=== PATIENT | male | born 1950 | race Caucasian/White ===

== ENCOUNTER 2020-01-30 00:11 | Day surgery (SDC) | payer MEDICARE, OTHER, SELFPAY ==
[2020-01-27 12:10] VITALS: BMI 27.6
[2020-01-30 09:45] VITALS: BP 151/99; PULSE 75; RESP 18; TEMP 36.2; O2SAT 98
--- NOTE | 2020-01-30 10:14 | WPDANESEPPF ---
Anes - Initial Pre Proc Eval Procedure: Operation Date: 01/30/20 11:00 Proposed Procedures p Screening Colonoscopy - Nicholas Benitez MD Date/Time: 01/30/20 10:14 Surgeon: Nicholas Benitez MD Pre Op Diagnosis: pers hx colon polyps Patient Data Age: 69 Gender: M Height: 5 ft 11 in Weight: 92.2 kg Last Vital Signs Temp 36.2 C L 01/30/20 09:45 Pulse 75 01/30/20 09:45 Resp 18 01/30/20 09:45 BP 151/99 H 01/30/20 09:45 Pulse Ox 98 01/30/20 09:45 Allergies Allergy/AdvReac Type Severity Reaction Status Date / Time No Known Allergies Allergy Verified 01/27/20 12:17 Home Medications Medication Instructions Recorded Confirmed Type No Home Medications 01/27/20 01/27/20 History Patient hx anesthesia problems: none Family hx anesthesia problems: none PMFSH Past Medical History Medical History (Updated 01/30/20 @ 10:15 by Lex Chavira MD) Overweight Surgical History Surgical History (Updated 01/30/20 @ 10:15 by Lex Chavira MD) History of partial knee replacement S/P hernia repair Family History Family History Sibling Hypertension Mother Family history of osteoarthritis Father Patient's father is Social History Social History Smoking end date: 09/25/87 Alcohol intake: current Anes - Eval Final PreProcedure Day of Procedure 01/30/20 10:14 Patient weight: overweight Heart: regular rate and rhythm Lungs: clear to auscultation Airway: Mallampati scale class 1 Neurological: alert and oriented Last oral intake: >/= 8 hours ASA classification: II Emergent: no Anesthetic plan: proceed Anesthesia type and monitoring: general GIVS and standard monitoring Informed Consent: The patient's anesthetic plan and its attendant risks and benefits were discussed with the patient/family/POA. Questions were solicited and answers provided to the satisfaction of the patient/family/POA.
[2020-01-30] MEDS: LACTATED RINGERS 1,000 ML 150 ML IV CONT (10:15)
--- NOTE | 2020-01-30 10:54 | P.HP_ITS ---
History of Present Illness History of Present Illness Consent: Risks, benefits, and alternatives have been discussed and questions answered. Patient agrees to proceed with procedure. Chief complaint: pers hx colon polyps Narrative: Topher Robbins is a 69 year old W male Referred for colonoscopy secondary to removal of a sessile ascending colon polyp 6 months ago at [facility] Past Medical History Medical History Overweight Surgical History Surgical History History of partial knee replacement S/P hernia repair Family History Family History Sibling Hypertension Mother Family history of osteoarthritis Father Patient's father is Social History Social History Smoking end date: 09/25/87 Alcohol intake: current Meds Home Medications and Allergies Home Medications Medication Instructions Recorded Confirmed Type No Home Medications 01/27/20 01/27/20 History Allergies Allergy/AdvReac Type Severity Reaction Status Date / Time No Known Allergies Allergy Verified 01/27/20 12:17 Vital Signs Vital Signs - 24 hr 01/30/20 09:45 Temperature 36.2 C L Pulse Rate 75 Respiratory Rate 18 Blood Pressure 151/99 H Pulse Oximetry 98 Exam Const: Orientation/consciousness: patient oriented x3 Resp: Auscultation: clear to auscultation bilaterally Cardio: Rate: regular rate Rhythm: regular rhythm Heart sounds: no mu rmurs GI: GI Palp: Yes Soft to palpation, No Tenderness to palpation present (GI), Yes No hepatosplenomegaly present and No Palpable mass present Auscultation: normal bowel sounds Neuro: General: patient oriented x3 and no focal motor deficits Extrem: General: no pedal edema Assessment and Plan Additional Plan Colonoscopy for follow-up of a sessile polyp removed piecemeal fashion 6 months ago at [facility]
[2020-01-30 12:15] VITALS: BP 100/55; PULSE 47; RESP 18; O2SAT 97
[2020-01-30 12:16] VITALS: BP 93/53; PULSE 54; RESP 18; O2SAT 97
[2020-01-30 12:30] VITALS: BP 109/59; PULSE 47; RESP 18; O2SAT 99
== END 2020-01-30 13:00 | disposition home or self-care (01) ==
PROVIDERS: PCP Internal Medicine; Visit Provider Internal Medicine Gastroenterology
PROC: 0DJD8ZZ Inspection of Lower Intestinal Tract, Via Natural or Artificial Opening Endoscopic (ICD-10-PCS; CPT 45378; principal; 2020-01-30 11:00)
DX: Z09 Encounter for follow-up examination after completed treatment for conditions other than malignant neoplasm (principal); K64.1 Second degree hemorrhoids; K64.4 Residual hemorrhoidal skin tags; Z86.010 Personal history of colon polyps
CPT/HCPCS: 45378; J2704; J7120

== ENCOUNTER → 2020-07-23 09:38 | Outpatient (CLI) | payer MEDICARE, OTHER, SELFPAY ==
--- NOTE | ~2020-07-23 | XR_ITS ---
EXAMINATION: XR wrist LT min 3V DATE: 07/23/2020 10:04 INDICATION: Left wrist pain. TECHNIQUE: 4 views of left wrist were obtained. COMPARISON: None. FINDINGS: Bone alignment is normal. No fracture. There is moderate osteoarthritis of distal radioulna r joint, mild osteoarthritis of scapholunate joint, moderate osteoarthritis of triscaphe joint, and m ild osteoarthritis of first carpometacarpal joint. IMPRESSION: 1. Polyarticular osteoarthritis. Reviewed, dictated and finalized at location A.
--- NOTE | ~2020-07-23 | XR_ITS ---
EXAMINATION: XR wrist RT min 3V DATE: 07/23/2020 10:04 INDICATION: Right wrist pain. TECHNIQUE: 4 views of right wrist were obtained. COMPARISON: None. FINDINGS: Bone alignment is normal. No fracture. There is moderate osteoarthritis of distal radioulna r joint, mild osteoarthritis of the capitate-lunate and scapholunate joints, severe osteoarthritis of triscaphe joint, and mild osteoarthritis of first carpometacarpal joint. IMPRESSION: 1. Polyarticular osteoarthritis. Reviewed, dictated and finalized at location A.
== END ==
PROVIDERS: PCP Internal Medicine; Visit Provider Clinical Nurse Specialist
DX: M19.032 Primary osteoarthritis, left wrist (principal); M19.031 Primary osteoarthritis, right wrist; M18.0 Bilateral primary osteoarthritis of first carpometacarpal joints
CPT/HCPCS: 73110

== ENCOUNTER 2021-06-11 18:42 | Emergency (ER) | payer MEDICARE, OTHER, SELFPAY ==
[2021-06-11 18:43] VITALS: BP 132/94; PULSE 85; RESP 20; TEMP 36.6; O2SAT 99
[2021-06-11] MEDS: TETANUS,DIPHTHERIA,AC PERTUSSIS ADULT (0.5 ML) BOOSTRIX IM (20:14)
[2021-06-11] MEDS: FLUORESCEIN SOD 1 MG/STRIP EACH EYE (20:15)
[2021-06-11] MEDS: TETRACAINE HCL 0.5% OPHTH SOLN 4 ML BTL 1 DROP EACH EYE (20:15)
--- NOTE | 2021-06-11 20:41 | ED.GENADULT ---
HPI - General Adult General Chief complaint: Eye Problems Stated complaint: metal in l eye Time Seen by Provider: 06/11/21 19:54 History of Present Illness HPI narrative: Patient 71-year-old gentleman who presents the emergency department with chief complaint of foreign body. Patient works he was doing some grinding just wearing his regular eyeglasses and was not wearing extended eye protection. The patient states he is reports that he feels as though there is something there and is not having any improvement. Patient states he is not sure what his last tetanus shot was. Between 5 and 10 years ago Related Data Allergies Allergy/AdvReac Type Severity Reaction Status Date / Time No Known Allergies Allergy Verified 07/09/20 14:06 Review of Systems Review of Systems: A 10 system review of systems was completed on the patient and is negative except for what is stated in the HPI. Nursing and ancillary documentation was reviewed. [facility] Past Medical History Medical History (Updated 06/11/21 @ 20:47 by Juve Peterson MD) Overweight Surgical History Surgical History History of partial knee replacement S/P hernia repair Family History Family History Sibling Hypertension Mother Family history of osteoarthritis Father Patient's father is Social History Social History Smoking end date: 09/25/87 Alcohol intake: current Alcohol use details: weekends Exam Narrative: GENERAL: Well-appearing, well-nourished, and in no acute distress. HEAD: Normocephalic, atraumatic. EYES: PERRLA and EOMI. there is a small foreign body in the cornea at approximately 5 o'clock position ENT: Nares clear, no rhinorrhea or epistaxis. Mucous membranes moist. NECK: Supple. CHEST: Clear to auscultation. No respiratory distress. HEART: Regular rate and rhythm. No murmur heard. Normal peripheral pulses. ABDOMEN: Soft, nontender, nondistended, normal active bowel sounds. EXTREMITIES: Normal range of motion. No edema. SKIN: Warm, dry, no rash. NEURO: No focal deficits. Alert and oriented x3. PSYCH: Normal mood and affect. Course Vital Signs Vital signs: Vital Signs Temperature 36.6 C 06/11/21 18:43 Pulse Rate 85 06/11/21 18:43 Respiratory Rate 06/11/21 18:43 Blood Pressure 132/94 H 06/11/21 18:43 Pulse Oximetry 99 06/11/21 18:43 Temperature 36.6 C 06/11/21 18:43 Pulse Rate 85 06/11/21 18:43 Respiratory Rate 06/11/21 18:43 Blood Pressure 132/94 H 06/11/21 18:43 Pulse Oximetry 99 06/11/21 18:43 Procedures FB Removal Eye Foreign Body #1: Foreign Body Removal Date: 06/11/21 Foreign Body Removal Time: 20:44 Time Out performed: Yes Location: eye (L) Topical anesthetic used: tetracaine Foreign body: metal Evidence of corneal penetration: No Technique: needle Procedure performed under: direct visualization with magnification Post-procedure medication: ophthalmic antibiotic Patient tolerated procedure: well Complications: residual rust ring Medical Decision Making Vital Signs Vital Signs: Vital Signs Temperature 36.6 C 06/11/21 18:43 Pulse Rate 85 06/11/21 18:43 Respiratory Rate 06/11/21 18:43 Blood Pressure 132/94 H 06/11/21 18:43 Pulse Oximetry 99 06/11/21 18:43 Temperature 36.6 C 06/11/21 18:43 Pulse Rate 85 06/11/21 18:43 Respiratory Rate 06/11/21 18:43 Blood Pressure 132/94 H 06/11/21 18:43 Pulse Oximetry 99 06/11/21 18:43 Discharge Plan Discharge Clinical Impression: Acute foreign body of cornea Qualifiers: Encounter type: initial encounter Laterality: left Qualified Code(s): T15.02XA - Foreign body in cornea, left eye, initial encounter
[2021-06-11] MEDS: GENTAMICIN SULFATE 0.3% OP SOL 5 ML BTL 1 DROP LEFT EYE (21:11)
[2021-06-11 21:14] VITALS: BP 140/77; PULSE 55; RESP 18; O2SAT 96
== END 2021-06-11 21:15 | disposition home or self-care (01) ==
PROVIDERS: Emergency Provider Emergency Medicine; PCP Internal Medicine
DX: T15.02XA Foreign body in cornea, left eye, initial encounter (principal); Z23 Encounter for immunization; X58.XXXA Exposure to other specified factors, initial encounter
CPT/HCPCS: 65220; 90471; 90715; 99283; A9270

== ENCOUNTER → 2022-01-27 12:26 | Outpatient (CLI) | payer MEDICARE, OTHER, SELFPAY ==
--- NOTE | ~2022-01-27 | XR_ITS ---
EXAMINATION: XR chest 2V DATE: 01/27/2022 13:37 INDICATION: Cough and congestion. Intermittent shortness of breath. TECHNIQUE: PA and lateral views of the chest were obtained. COMPARISON: Chest radiograph dated 04/29/[address] abdomen dated 07/17/2014 FINDINGS: Minimal streaky lingular atelectasis along side a small left pericardial fat pad. No new airspace opa cities, pulmonary edema, pleural effusion or pneumothorax. Arch size is normal. Moderate midthoracic spondylosis. IMPRESSION: 1. Minimal chronic lingular atelectasis/scarring. No acute cardiopulmonary disease. Reviewed, dictated and finalized at location A. IMPRESSION: 1. Minimal chronic lingular atelectasis/scarring. No acute cardiopulmonary dise ase.
== END ==
PROVIDERS: PCP Internal Medicine; Visit Provider Nurse Practitioner
DX: R05.9 Cough, unspecified (principal); R91.8 Other nonspecific abnormal finding of lung field
CPT/HCPCS: 71046

== ENCOUNTER 2022-02-25 14:03 | Outpatient (CLI) | payer MEDICARE, OTHER, SELFPAY ==
--- NOTE | 2022-02-28 13:16 | WPDPFTINT ---
PFT Procedure Performed PFT Procedure Performed Plethysmography (Lung Vol) Diffusing Cap (DLCO) Flow Vol Loop Spirometry w/o Bronchodil PFT Interpretation Lung volumes were measured with the body plethysmography method. Lung volumes are unremarkable. Spirometry showed diminished expiratory flow rates and a diminished FEV1 to FVC ratio of 54%, indicative of obstructive airway disease. No post bronchodilator study carried out. Lung diffusion capacity is within normal range at 97% predicted. The flow volume loop is consistent with obstructive airway disease. Impression: Mild obstructive airway disease. Lung diffusion capacity within normal range.
== END 2022-02-25 14:04 | disposition home or self-care (01) ==
LOC: ANHPFT 14:05
PROVIDERS: PCP Internal Medicine; Visit Provider Nurse Practitioner
DX: R05.9 Cough, unspecified (principal); J44.9 Chronic obstructive pulmonary disease, unspecified
CPT/HCPCS: 94375; 94726; 94729

== ENCOUNTER 2022-03-24 01:28 | Day surgery (SDC) | payer MEDICARE, OTHER, SELFPAY ==
[2022-03-10 08:23] VITALS: BMI 26.9
--- NOTE | 2022-03-22 12:44 | PM.HPGS ---
History of Present Illness History of Present Illness Consent: Risks, benefits, and alternatives have been discussed and questions answered. Patient agrees to proceed with procedure. Chief complaint: hx of colon polyps Narrative: Topher Robbins is a 72 year old male Who was referred for colon cancer screening. Three years ago he had piecemeal resection of a flat an advanced adenoma in the proximal ascending colon Review of Systems Review of Systems: All systems reviewed & are unremarkable except as noted in HPI and below PMFSH Past Medical History Medical History Emphysema of lung Obstructive airway disease Overweight Surgical History Surgical History History of partial knee replacement S/P hernia repair Family History Family History Sibling Hypertension Mother Family history of osteoarthritis Father Patient's father is Social History Social History Smoking end date: 09/25/87 Alcohol intake: current Drinks per week: 10 Alcohol use details: weekends Substance use: current Substance use type: marijuana Living arrangements: alone Meds Home Medications and Allergies Home Medications Medication Instructions Recorded Confirmed Type ipratropium 0.5 mg-albuterol 3 mg 3 ml inhalation Q6H PRN shortness 02/17/21 03/10/22 Rx (2.5 mg base)/3 mL nebulization of breath #90 mL soln albuterol sulfate 90 mcg/actuation 2 puff inhalation Q4-6H PRN 03/18/21 03/24/22 Rx aerosol inhaler (Ventolin HFA) shortness of breath or wheezing #18 grams sodium sul 1.479 gram-potas ch See Rx Instructions PO PER PKG DIR 02/24/22 03/10/22 Rx 0.188 gram-magnes sul 0.225 gram #24 tabs tablet (Sutab) Allergies Allergy/AdvReac Type Severity Reaction Status Date / Time No Known Allergies Allergy Verified 03/24/22 08:39 Exam Const: General: alert Orientation/consciousness: patient oriented x3 Resp: Auscultation: clear to auscultation bilaterally Cardio: Rhythm: regular rhythm GI: GI Palp: Yes Soft to palpation and No Tenderness to palpation present (GI) Neuro: General: patient oriented x3 Assessment and Plan Assessment and plan (1) Colon cancer screening: Code(s): Z12.11 - Encounter for screening for malignant neoplasm of colon Status: Acute Assessment and Plan: Colonoscopy with possible biopsy or polypectomy or cautery or injection of substances.
--- NOTE | 2022-03-23 19:13 | WPDANESEPPF ---
Anes - Initial Pre Proc Eval Procedure: Operation Date: 03/24/22 09:30 Proposed Procedures p Screening Colonoscopy - Scotty rGaf MD Date/Time: 03/23/22 19:13 Surgeon: Scotty Graf MD Pre Op Diagnosis: hx of colon polyps Patient Data Age: 72 Gender: M Height: 1.83 m Weight: 90 kg Allergies Allergy/AdvReac Type Severity Reaction Status Date / Time No Known Allergies Allergy Verified 03/24/22 08:39 Home Medications Medication Instructions Recorded Confirmed Type ipratropium 0.5 mg-albuterol 3 mg 3 ml inhalation Q6H PRN shortness 02/17/21 03/10/22 Rx (2.5 mg base)/3 mL nebulization of breath #90 mL soln albuterol sulfate 90 mcg/actuation 2 puff inhalation Q4-6H PRN 03/18/21 03/24/22 Rx aerosol inhaler (Ventolin HFA) shortness of breath or wheezing #18 grams sodium sul 1.479 gram-potas ch See Rx Instructions PO PER PKG DIR 02/24/22 03/10/22 Rx 0.188 gram-magnes sul 0.225 gram #24 tabs tablet (Sutab) Patient hx anesthesia problems: none Family hx anesthesia problems: none Results Review: All pre-operative results and documents have been reviewed as part of the pre-operative evaluation. [facility], [facility] Past Medical History Medical History Emphysema of lung Obstructive airway disease Overweight Surgical History Surgical History History of partial knee replacement S/P hernia repair Family History Family History Sibling Hypertension Mother Family history of osteoarthritis Father Patient's father is Social History Social History Smoking end date: 09/25/87 Alcohol intake: current Drinks per week: 10 Alcohol use details: weekends Substance use: current Substance use type: marijuana Living arrangements: alone Anes - Eval Final PreProcedure Day of Procedure 03/23/22 19:13 Patient weight: overweight Heart: regular rate and rhythm Lungs: clear to auscultation Airway: Mallampati scale class II Neurological: alert and oriented Last oral intake: >/= 8 hours ASA classification: III Emergent: no Anesthetic plan: proceed Anesthesia type and monitoring: general GIVS and standard monitoring Results Review: All pre-operative results and documents have been reviewed as part of the pre-operative evaluation. Informed Consent: The patient's anesthetic plan and its attendant risks and benefits were discussed with the patient/family/POA. Questions were solicited and answers provided to the satisfaction of the patient/family/POA.
[2022-03-24 08:41] VITALS: BP 144/51; PULSE 95; RESP 20; TEMP 36.5; O2SAT 94; BMI 27.4
[2022-03-24] MEDS: LACTATED RINGERS 1,000 ML 150 ML IV CONT (08:44)
[2022-03-24 09:34] VITALS: BP 106/66; PULSE 60; RESP 23; O2SAT 97
[2022-03-24 09:44] VITALS: BP 114/71; PULSE 66; RESP 24; O2SAT 97
[2022-03-24 09:54] VITALS: BP 113/78; PULSE 54; RESP 19; O2SAT 98
== END 2022-03-24 10:04 | disposition home or self-care (01) ==
PROVIDERS: PCP Internal Medicine; Visit Provider Internal Medicine Gastroenterology
PROC: 0DJD8ZZ Inspection of Lower Intestinal Tract, Via Natural or Artificial Opening Endoscopic (ICD-10-PCS; CPT 45378; principal; 2022-03-24 09:30)
DX: Z12.11 Encounter for screening for malignant neoplasm of colon (principal); K63.5 Polyp of colon; K64.8 Other hemorrhoids; Z79.51 Long term (current) use of inhaled steroids; J43.9 Emphysema, unspecified; F12.90 Cannabis use, unspecified, uncomplicated
CPT/HCPCS: 45380; 88305; J2704; J7120

== ENCOUNTER 2024-08-01 09:06 | Outpatient (CLI) | payer MEDICARE, OTHER, SELFPAY ==
[2024-08-01 09:25] LABS: Basophils Absolute Auto 0.1 K/mm3 (0.0-0.1); Basophils Percent Auto 0.6 % (0.2-1.2); Eosinophils Absolute Auto 0.3 K/mm3 (0-0.3); Eosinophils Percent Auto 2.8 % (0-4.4); Hematocrit 44.6 % (42.0-52.0); Hemoglobin 15.3 g/dL (14.0-18.0); Immature Granulocyte Absolute 0.04 K/mm3 (0.00-0.031); Immature Granulocyte Percent A 0.4 % (0-0.5); Lymphocytes Absolute Auto 3.05 K/mm3 (0.9-3.2); Lymphocytes Percent Auto 32.4 % (18.3-44.2); Mean Corpuscular HGB Conc 34.3 g/dl (32-36); Mean Corpuscular Hemoglobin 29.4 pg (26-34); Mean Corpuscular Volume 85.8 fl (80-100); Mean Platelet Volume 10.1 fl (7.4-10.4); Monocytes Absolute Auto 0.8 K/mm3 (0.1-0.6); Monocytes Percent Auto 8.3 % (2.6-8.5); Neutrophils Absolute Auto 5.2 K/mm3 (1.3-6.7); Neutrophils Percent Auto 55.5 % (45.5-73.1); Platelet Count Result 237 k/mm3 (150-375); White Blood Count 9.4 K/mm3 (4.5-10.0)
[2024-08-01 09:46] LABS: Alanine Aminotransferase 16 U/L (6-50); Albumin Level 4.3 g/dL (3.5-5.1); Alkaline Phosphatase 77 U/L (38-126); Anion Gap 10 mmol/L (4-12); Aspartate Amino Transferase 21 U/L (17-59); Bilirubin,Total 0.8 mg/dL (0.2-1.3); Blood Urea Nitrogen 14 mg/dL (9-20); Calcium 9.3 mg/dL (8.4-10.2); Carbon Dioxide 28 mmol/L (22-30); Chloride 103 mmol/L (98-107); Cholesterol 199 mg/dL (0-200); Estimated Glomerular Filt Rate > 60; Glucose 106 mg/dL (65-110); HDL Direct 45 mg/dL; Potassium 4.3 mmol/L (3.4-5.0); Sodium 141 mmol/L (137-145); Triglycerides 154 mg/dL (<150)
[2024-08-01 09:57] LABS: LDL Cholesterol Direct 113 mg/dL
[2024-08-01 10:14] LABS: Prostate Specific Antigen 2.5 ng/mL (< OR = 4.0)
== END 2024-08-01 09:07 | disposition home or self-care (01) ==
PROVIDERS: PCP Internal Medicine; Visit Provider Nurse Practitioner
DX: E78.5 Hyperlipidemia, unspecified (principal); Z12.5 Encounter for screening for malignant neoplasm of prostate; Z13.29 Encounter for screening for other suspected endocrine disorder
CPT/HCPCS: 36415; 80053; 80061; 84153; 85025; G0103

== ENCOUNTER 2025-06-06 12:58 | Outpatient (CLI) | payer MEDICARE, OTHER, SELFPAY ==
--- NOTE | ~2025-06-06 | XR_ITS ---
XR scoliosis survey 06/06/2025 13:37 Indication: Spinal stenosis Procedure: 10 views of the spine including the cervical, thoracic and lumbar spine Comparison: 06/06/2025 Findings: There is severe cervical, thoracic and lumbar spondylosis. There is mild dextrocurvature of the cervical spine with levocurvature of the thoracic and lumbar spine. There is mild dextrocurvature of the spine at the thoracolumbar junction. No acute fracture, subluxation or cyst dislocation. Impression: 1: Severe multilevel spondylosis of the cervical, thoracic and lumbar spine with mild scoliosis. Reviewed, dictated and finalized at location O. Impression: 1: Severe multilevel spondylosis of the cervical, thoracic and lumbar spine wit h mild scoliosis.
--- NOTE | ~2025-06-06 | CT_ITS ---
CHEST ABDOMEN PELVIS WITH CONTRAST CLINICAL HISTORY: ABN FINDINGS;SACROCOCCYDEAL DISORDERS . COMPARISON: None TECHNIQUE: Helical CT performed from thoracic inlet to symphysis pubis 100 mL Omnipaque 350 Coronal, sagittal reformats. Multi planar MIPS CT images acquired with automatic exposure control for dose reduction DLP: 726 mGy-cm FINDINGS: CHEST- Lungs/Pleura: Clear. Mild hyperinflation. Thoracic Aorta: No dissection. No aneurysm. Mild atherosclerotic disease. Pulmonary arteries: Normal caliber. No PE identified but suboptimal contrast opacification. Heart: Coronary artery calcifications. Tracheobronchial tree: Patent. Nodes: No enlarged nodes. Small left hilar calcification. Bones: No acute bony abnormality. Soft tissues: Small left thyroid nodule. ABDOMEN/PELVIS- Liver: Steatosis. Gallbladder: Unremarkable. Spleen: Unremarkable. Pancreas: Unremarkable. Adrenal glands: Unremarkable. Kidneys: Right kidney- No hydronephrosis. No renal stones. Left kidney- No hydronephrosis. No renal stones. Distal esophagus/stomach: Unremarkable. Small bowel loops: Normal caliber and wall thickness. Colon: Apparent wall thickening distal descending colon likely merely underdistention. Normal RLQ appendix. Nodes: No enlarged nodes. Peritoneum: No ascites. No free air. Urinary bladder: Mild wall thickening. Prostate: Unremarkable. Bones: No acute bony abnormality. Soft tissues: Unremarkable. Aorta: Atherosclerotic disease. No aneurysm or dissection. Median arcuate ligament attenuation on celiac with inferior angulation and narrowing. IVC: Unremarkable. Main portal vein/SMV/splenic vein: Patent. IMPRESSION: CHEST- 1. No acute findings. ABDOMEN/PELVIS- 1. No acute findings. Nonurgent findings as above. Reviewed, dictated and finalized at location R.
--- NOTE | ~2025-06-06 | XR_ITS ---
XR lumbar spine min 4V Indication: M48.00 - Spinal stenosis, site unspecified Comparison: None Findings: No fracture identified, no subluxation flexion-extension Moderate loss of disc height at L2-3. Soft tissues unremarkable Impression: No acute abnormality. Reviewed, dictated and finalized at location A. Impression: No acute abnormality.
[2025-06-09 09:37] LABS: Estimated Glomerular Filt Rate > 60
== END 2025-06-06 12:59 | disposition home or self-care (01) ==
PROVIDERS: PCP Internal Medicine; Referring Provider Neurological Surgery; Visit Provider Nurse Practitioner
DX: M48.00 Spinal stenosis, site unspecified (principal); R93.7 Abnormal findings on diagnostic imaging of other parts of musculoskeletal system; M53.3 Sacrococcygeal disorders, not elsewhere classified
CPT/HCPCS: 71260; 72082; 72110; 74177; Q9967

== ENCOUNTER 2025-08-18 07:02 | Day surgery (SDC) | payer MEDICARE, OTHER, SELFPAY ==
[2025-06-17 09:33] VITALS: BMI 26.3
[2025-08-13 12:31] VITALS: BMI 26.4
--- NOTE | ~2025-08-18 | XR_ITS ---
Intraoperative images, fluoroscopy time 34 seconds Reviewed, dictated and finalized at location P. OR FRONT END DEVELOPER
--- NOTE | 2025-08-18 05:41 | WPDHPUPDATE1 ---
History and Physical Update Update Date/Time: 08/18/25 05:41 History and Physical has been reviewed, including an updated exam of the patient. There are NO changes in the patient's condition. Risks, benefits, and alternatives have been discussed and questions answered. Patient agrees to proceed with procedure.
--- NOTE | 2025-08-18 05:42 | P.OP_ITS ---
Procedure Note - Detailed Date of Procedure 08/18/25 Pre-op Diagnosis Lumbar Radioculopathy, Lumbar Spinal Stenosis w/Neurogenic Claudication Post-op Diagnosis Same Procedure Performed Right Lumbar Transforaminal Epidural Steroid Injection under Fluoroscopic Guidance and with Contrast Control at L3-4, L4-5. Surgeon Garret Kuhn MD Anesthesia Local Description of Procedure INFORMED CONSENT: Risks, benefits and alternatives to the procedure were discussed in detail with the patient who expressed explicit understanding and consent to proceed. Patient was informed verbally and in written form regarding the risks associated with the procedure including the low risk of serious infection, bleeding/bruising, allergic reaction, nerve or organ injury, paralysis, procedural site pain or discomfort, worsening pain and/or mobility, failure to treat and/or disfigurement. The patient expressed explicit understanding and consent to proceed. All materials required for the procedure were available prior to procedure start. Site and side was marked prior to procedure and confirmed in the presence of the patient. PROCEDURE IN DETAIL: The patient was brought to the procedural suite and placed in the prone position. Patient was made comfortable with use of pillows under t he head/chest, hips and ankles. Skin overlying the injection site was prepared broadly with ChloraPrep applicator and draped in a sterile manner. Aseptic technique was employed throughout. The endplates of the vertebral body at the site of interest were aligned in the AP view. Ipsilateral oblique angulation was utilized to better visualize the neuroforamen of interest. Local anesthesia was established by infiltration with approximately 5 mL of 0.5% PF lidocaine via a 1-1/2 inch 27-gauge needle. A 22-gauge 5.0 inch Kavya (pencil point) spinal needle was advanced until the needle approached the 6 o'clock position on the pedicle just superior to the exiting nerve root. on the right at L4-5. Lateral view was utilized to confirm appropriate position of the needle tip within the superior and posterior portion of the respective foramen. In an AP view, 1 mL of Omnipaque 300 contrast medium was injected after negative aspiration for CSF, blood or other bodily fluid, showing appropriate neurogram without evidence of intravascular or intrathecal spread of contrast. Digital subtraction imaging was used with an additional 1ml of the same contrast medium to confirm absence of intravascular contrast spread. A 1mL solution containing 5 mg of dexamethasone was injected after negative repeat aspiration. Appropriate spread of the injectate was confirmed with washout of previously injected contrast. No parasthesias were elicited. Needle was removed completely intact without difficulty. The same exact procedure was repeated for all remaining levels on the ipsilateral side, right L3-4 neuroforamen, modified as necessary to accommodate for the new target location with identical findings and results and no evidence of complication. Images were saved and documented in the patient chart. Patient's skin was cleaned and sterile bandage applied. The patient tolerated the procedure well. The patient was transported to the recovery area in stable condition where they were observed for an appropriate amount of time prior to discharge, without evidence of complication. The patient was instructed to avoid excessive activity for the next 48 hours, including climbing and frequent use of stairs. Showers only for 48 hours. They were instructed not to drive or operate heavy machinery for 24 hours. They are to monitor for severe headaches, fevers, chills, night sweats, erythema/swelling at the site or any other signs of infection, bleeding/bruising, bowel or bladder changes as well as new pain, weakness or numbness in the upper or lower extremity. Should they notice these changes, they are instructed to call our office immediately or report directly to the nearest Emergency Department if no answer or if after posted office hours. COMPLICATIONS: None COMMENTS: None CONTRAST WASTED: 26 mL Omnipaque 300. STEROID WASTED: 0 mg of dexamethasone. Complications No immediate complications Condition Stable Disposition Same day [facility] Billing Surgery - Charge Forward: Surgery Billing
--- OUTSIDE RECORDS SUMMARY | 2025-08-18 07:05 | XMS_ITS | Encounter Summary ---
Author Organization [facility] Address [address] [place] [address] Phone Care Team Providers Care Primary Class Teacher Name Role Phone Desi Valle NP Primary Care Provider [phone] Morgan Song MD Unavailable [phone] Encounter Details Date Type Department Care Team (Late st Contact Info) Description 08/14/2025 Orders Only [facility] [address] [place] [address] Breana Townsned Social History Tobacco Use Types Packs/Day Years Used Date Smoking Tobacco: Former Smokeless Tobacco: Former Chew Alcohol Use Standard Drinks/Week Comments Yes 2 (1 standard drink = 0.6 oz pur e alcohol) AUDIT-C Answer Date Recorded Q1: How often do you have a drink containing alc ohol? Monthly or less 07/31/2025 Average Number of Drinks Not on file 025 Frequency of Binge Drinking Not on file 02/2025 Personal Safety Answer Date Recorded Have you ever been in or are you currently in a harmful physical or emotional relationship or is someone making you feel afraid or unsafe? 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[employer] Gender Identity Not on file Sexual Orientation Not on file Occupation Industry Job Start Date Job End Date retired Not on file Not on file Not on file documented as of this encounter Functional Status documented as of this encounter Plan of Treatment Not on file documented as of this encounter Visit Diagnoses Not on filedocumented in this encounter Care Teams Primary Class Teacher Relationship Specialty Start Date End Date Desi Valle, QI SPECIALIST [facility] [place] [place] [address] PCP - General Nurse Practitioner 06/30/25 Morgan Song MD [address] [place] [address] Consulting Physician Internal Medicine 07/01/25 documented as of this encounter
--- OUTSIDE RECORDS SUMMARY | 2025-08-18 07:06 | XMS_ITS ---
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 Past Treatment and Therapy Plans No past plan information found. Current Radiation Episodes * Radiation TherapyOverview* First Treatment Date Latest Treatment Date Treatment Site Technique Goal Episode Provider 08/06/2025 08/08/2025 Treatment Courses* Course [id number]/06/2025 - 08/08/2025 Treatment Period Fraction Dose Fractions Total Dose Plans Planned PELVIS 08/06/2025 - 08/08/2025 200 2 / 4 00 Reference Points Delivered PELVIS_400 08/06/2025 - 08/08/2025 400
--- OUTSIDE RECORDS SUMMARY | 2025-08-18 07:06 | XMS_ITS | Clinical Summary ---
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 Leukocytosis 02/19/2020 Adenomatous polyp of ascending colon 03/20/2019 Overview (03/20/2019): Added automatically from request for surgery [id number] Knee pain 12/12/2013 Encounters Date Type Department Care Team Description 08/14/2025 11:15 AM TANK TRUCK MECHANIC Office Visit [facility] [address] [place] [address] [address] [place] [address] Angela Hall NP Follicular lymphoma grade I, unspecified body region (HCC) (Primary Dx); 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); Non-Hodgkin lymphoma of bone (HCC) 08/14/2025 10:45 AM TANK TRUCK MECHANIC Lab [facility] at [address] [place] [address] 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); Non-Hodgkin lymphoma of bone (HCC) 08/14/2025 Orders Only [facility] Oncology [address] [place] [address] [address] [place] [phone] Breana Townsend 08/14/2025 Telephone [facility] [address] [place] [address] [address] [place] [address] Casandra Lindsay CMA 08/13/2025 Telephone [facility] Advanced [facility] Radiation Oncology [address] [place] [address] Julianna Shabazz RN 08/08/2025 Orders Only RAD ONC TREATMENTS Miscellaneous, Not In File 08/07/2025 3:31 PM TANK TRUCK MECHANIC - 08/07/2025 11:59 PM [facility] Hospital Encounter [facility] Advanced Medicine Radiation Oncology [address] [place] [id number] Neema Ramos MD Discharge Disposition: Discharge to home or self care 08/07/2025 Completion of Therapy [facility] Advanced Medicine Radiation Oncology [address] [place] [address] Neema Ramos MD 08/07/2025 Orders Only [facility] Advanced [facility] Radiation Oncology [address] [place] [address] Neema Ramos MD Follicular lymphoma grade I, unspecified body region (HCC) (Primary Dx); 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 [place] [address] Neema Ramos MD Discharge Disposition: Discharge to home or self care 08/06/2025 Orders Only RAD ONC TREATMENTS Miscellaneous, Not In File 08/05/2025 8:30 PM TANK TRUCK MECHANIC - 08/05/2025 11:59 PM TANK TRUCK MECHANIC Hospital Encounter [facility] Radiation Oncology [address] [facility] [place] [address] Neema Ramos MD Discharge Disposition: Discharge to home or self care 08/01/2025 12:58 PM TANK TRUCK MECHANIC - 08/01/2025 11:59 PM TANK TRUCK MECHANIC Hospital Encounter [facility] Radiation Oncology [address] [place] [address] Neema Ramos MD Discharge Disposition: Discharge to home or self care 07/31/2025 10:00 AM TANK TRUCK MECHANIC Consult [facility] Radiation Oncology [address] [facility] [place] [address] Neema Ramos MD Follicular lymphoma grade I, unspecified body region (HCC) (Primary Dx) 07/31/2025 Telephone [facility] Advanced Medicine Radiation Oncology [address] 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 [place] [address] Neema Ramos MD 07/09/2025 12:57 PM CDT - 07/09/2025 11:59 PM CDT Hospital Encounter [facility] - PET [address] [facility] [address] [place] [address] Discharge Disposition: Discharge to home or self care 07/09/2025 12:57 PM CDT - 07/09/2025 11:59 PM CDT Hospital Encounter [facility] - PET [address] [facility] [address] [place] [address] Non-Hodgkin lymphoma of bone (HCC) Discharge Disposition: Discharge to home or self care 07/03/2025 3:00 PM CDT Office Visit [facility] [address] [place] [phone] Morgan Song MD Non-Hodgkin lymphoma of bone (HCC) (Primary Dx) 07/03/2025 2:30 PM CDT Lab [facility] at [address] [address] Non-Hodgkin lymphoma of bone (HCC) 06/23/2025 Telephone [facility] 1 [place] [address] Roxanne Raymundo RN 06/20/2025 11:57 AM CDT - 06/20/2025 11:59 PM CDT Hospital Encounter [facility] 1 [place] [address] Michael Beltran MD Disorder of bone; Abnormal findings on diagnostic imaging of other parts of musculoskeletal system Discharge Disposition: Discharge to home or self care 06/20/2025 Orders Only [facility] [address] [place] [address] Dang Will RN 06/19/2025 Telephone [facility] 1 [place] [address] Theresa Chavis, ALFREDO 06/16/2025 Orders Only [facility] [address] [place] [address] Desi Valle NP 06/13/2025 Telephone [facility] [address] [place] [address] Roxanne Raymundo, ALFREDO 06/11/2025 Telephone [facility] [address] [place] [address] Roxanne Raymundo, ALFREDO 06/05/2025 1:43 PM CDT - 06/05/2025 11:59 PM CDT Hospital Encounter [facility] 1 [place] [address] Localized swelling, mass and lump, trunk Discharge Disposition: Discharge to home or self care 06/05/2025 1:43 PM CDT - 06/05/2025 11:59 PM CDT Hospital Encounter [facility] [address] [place] [address] Localized swelling, mass and lump, trunk Discharge Disposition: Discharge to home or self care from Last 3 Months Immunizations Immunization Administration Dates Next Due Influenza, Trivalent, Adjuvanted, Intramuscular 08/03/2018 Influenza, Trivalent, High D ose, Split, Preservative Free, Intramuscular 07/31/2019 Influenza, Unspecified 10/03/2013 Pneumococcal Conjugate PCV 13 08/03/2018 Surgical History Surgery Date Site/Laterality Comments REPLACEMENT TOTAL KNEE JOINT REPLACEMENT 12/24/2013 - 01/22/2014 Right UKA BIOPSY DEEP BONE 06/20/2025 N/A COLONOSCOPY HERNIA REPAIR Medical History Medical History Date Comments Lymphoma (HCC) Family History Medical History Relation Name Comments Arthritis Mother Family history of arthritis - (Added by TW Conv) Relation Name Status Comments Mother Social History Tobacco Use Types Packs/Day Years Used Date Smoking Tobacco: Former Smokeless Tobacco: Former Chew Tobacco Cessation:Counseling Given: Not Answered Alcohol Use Standard Drinks/Week Comments Yes 2 [...] on file Legal Sex Male 2:40 AM TANK TRUCK MECHANIC Gender Identity Not on file Sexual Orientation Not on file Occupation Industry Job Start Date Job End Date retired Not on file Not on file Not on file Last Filed Vital Signs Vital Sign Reading Time Taken Comments Blood Pressure 144/83 08/14/2025 11:00 AM TANK TRUCK MECHANIC Pulse 50 08/14/2025 11:00 AM TANK TRUCK MECHANIC Temperature 36.6 C (97.8 F) 08/14/2025 11:00 AM TANK TRUCK MECHANIC Respiratory Rate 18 08/14/2025 11:00 AM TANK TRUCK MECHANIC Oxygen Saturation 99% 08/14/2025 11:00 AM TANK TRUCK MECHANIC Inhaled Oxygen Concentration - - Weight 92.8 kg (204 lb 9.4 oz) 08/14/2025 11:00 AM TANK TRUCK MECHANIC Height 180.3 cm (5' 11) 07/31/2025 10:06 AM TANK TRUCK MECHANIC Body Mass Index 28.53 07/31/2025 10:06 AM TANK TRUCK MECHANIC Plan of Treatment Health Maintenance Due Date Last Done Comments Depression Screening 1950 Hepatitis B Screening 02/28/1970 Zoster Vaccine (1 of 2) 02/28/1971 Abdominal Aortic Aneurysm (A AA) Screen 02/28/2017 Well Visit 65+ 02/28/2017 Covid-19 Vaccine (4 - 2024-2 6 season) 2025 09/27/2021, 01/29/2021, 01/01/2021 Influenza Vaccine (#1) 2025 , 08/03/2023, 09/02/2022, Additional history exists Fall Risk Assessment 07/31/2026 07/31/2025, 06/20/20 25 Colon Cancer Screening-Colonoscopy 04/29/2029 04/29/2019 DTaP/Tdap/Td Vaccine (2 - Td or Tdap) 06/11/2031 06/11/2021 Colon Cancer Screening-CT Colonography Discontinued 04/29/2019 Colon Cancer Screening-DNA Stool Discontinued 04/29/20 19 Colon Cancer Screening-FIT Discontinued 04/29/2019 Colon Cancer Screening-Sigmoidoscopy Discontinued 04/29/2019 Pneumococcal vaccine 65+ Completed 023, 07/09/2020, 08/03/2018 Hepatitis C Screening Completed 07/03/2025 Procedures Procedure Name Priority Date/Time Associated Diagnosis Comments EGFR Routine 08/14/2025 10:43 AM TANK TRUCK MECHANIC 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) Non-Hodgkin lymphoma of bone (HCC) DIFFERENTIAL AUTO Routine 08/14/2025 10:43 AM TANK TRUCK MECHANIC 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) Non-Hodgkin lymphoma of bone (HCC) LACTATE DEHYDROGENASE Routine 08/14/2025 10:43 AM TANK TRUCK MECHANIC 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) Non-Hodgkin lymphoma of bone (HCC) COMPREHENSIVE METABOLIC PANEL Routine 08/14/2025 10:43 AM TANK TRUCK MECHANIC 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) Non-Hodgkin lymphoma of bone (HCC) CBC WITH AUTO DIFFERENTIAL Routine 08/14/2025 10:43 AM TANK TRUCK MECHANIC 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) Non-Hodgkin lymphoma of bone (HCC) RAD ONC ARIA COURSE SUMMARY 08/08/2025 9:11 AM TANK TRUCK MECHANIC RAD ONC ARIA SESSION SUMMARY 08/07/2025 3:55 PM TANK TRUCK MECHANIC RAD ONC ARIA SESSION SUMMARY 08/06/2025 7:45 AM TANK TRUCK MECHANIC EGFR Routine 07/17/2025 10:05 AM CDT Non-Hodgkin lymphoma of bone (HCC) DIFFERENTIAL AUTO Routine 07/17/2025 10:05 AM CDT Non-Hodgkin lymphoma of bone (HCC) LACTATE DEHYDROGENASE Routine 07/17/2025 10:05 AM CDT Non-Hodgkin lymphoma of bone (HCC) COMPREHENSIVE METABOLIC PANEL Routine 07/17/2025 10:05 AM CDT Non-Hodgkin lymphoma of bone (HCC) CBC WITH AUTO DIFFERENTIAL Routine 07/17/2025 10:05 AM CDT Non-Hodgkin lymphoma of bone (HCC) PET/CT FDG SKULL TO THIGH Schedule Routine, Read Routine (OP Routine) 07/09/2025 3:29 PM CDT Non-Hodgkin lymphoma of bone (HCC) EGFR Routine 07/03/2025 2:35 PM CDT Non-Hodgkin lymphoma of bone (HCC) DIFFERENTIAL AUTO Routine 07/03/2025 2:35 PM CDT Non-Hodgkin lymphoma of bone (HCC) URIC ACID Routine 07/03/2025 2:35 PM CDT Non-Hodgkin lymphoma of bone (HCC) LACTATE DEHYDROGENASE Routine 07/03/2025 2:35 PM CDT Non-Hodgkin lymphoma of bone (HCC) COMPREHENSIVE METABOLIC PANEL Routine 07/03/2025 2:35 PM CDT Non-Hodgkin lymphoma of bone (HCC) CBC WITH AUTO DIFFERENTIAL Routine 07/03/2025 2:35 PM CDT Non-Hodgkin lymphoma of bone (HCC) HEPATITIS C ANTIBODY Routine 07/03/2025 2:35 PM CDT Non-Hodgkin lymphoma of bone (HCC) HEPATITIS B CORE ANTIBODY, TOTAL Routine 07/03/2025 2:35 PM CDT Non-Hodgkin lymphoma of bone (HCC) HEPATITIS B SURFACE ANTIBODY (IMMUNE STATUS) Routine 07/03/2025 2:35 PM CDT Non-Hodgkin lymphoma of bone (HCC) HIV 1/2 ANTIBODY PLUS P24 ANTIGEN Routine 07/03/2025 2:35 PM CDT Non-Hodgkin lymphoma of bone (HCC) BIOPSY DEEP BONE Schedule Routine, Read Routine (OP Routine) 06/20/2025 1:55 PM CDT Disorder of bone Abnormal findings on diagnostic imaging of other parts of musculoskeletal system MYCOLOGY (FUNGAL) CULTURE AND STAIN Routine 06/20/2025 1:43 PM CDT AEROBIC AND ANAEROBIC CULTURE AND GRAM STAIN Routine 06/20/2025 1:43 PM CDT MYCOBACTERIOLOGY AFB CULTURE Routine 06/20/2025 1:43 PM CDT SURGICAL PATHOLOGY Routine 06/20/2025 1:28 PM CDT Disorder of bone Abnormal findings on diagnostic imaging of other parts of musculoskeletal system MRI LUMBAR SPINE W WO CONTRAST Schedule Routine, Read Routine (OP Routine) 06/05/2025 3:56 PM CDT Localized swelling, mass and lump, trunk MRI SACRUM COCCYX W WO CONTRAST Schedule Routine, Read Routine (OP Routine) 06/05/2025 3:54 PM CDT Localized swelling, mass and lump, trunk COLONOSCOPY 04/29/2019 11:40 AM CDT from Last 3 Months or Most Recently Relevant to Health Maintenance Results * eGFR (08/14/2025 10:43 AM TANK TRUCK MECHANIC) eGFR >90 >=60 mL/min/1. 73 m2 Comment: Interpretive Data Reference Interval Normal >/= 90 mL/min/1.73m2 Mildly decreased* 60 - 89 mL/min/1.73m2 Mildly to moderately decreased 45 - 59 mL/min/1.73m2 Moderately to severely decreased 30 - 44 mL/min/1.73m2 Severely decreased 15 - 29 mL/min/1.73m2 Kidney Failure < 15 mL/min/1.73m2 *Relative to young adult level Estimated glomerular filtration rate is determined by the 2020 CKD-EPI equation recommended by the National Kid[employer] (A Unifying Approach to GFR Estimation: Recommendations of the NKF-ASK Task Force on Reassessing the Inclusion of Race in Diagnosing Kidney Disease, JASN 202). The CKD-EPI equation should not be used for patients with unstable renal function and has not been validated in children and those over 70. Current interpretive data was last reviewed 2021. Testing performed by: [address] [address] Blood 08/14/2025 10:4 3 AM TANK TRUCK MECHANIC 08/14/2025 10:48 AM TANK TRUCK MECHANIC us Angela Hall ASSISTANT HEALTH EDUCATOR LAB BLOOD ORDERABLES Final Re sult EL[facility]ABETH [address] [facility] Department [place] [address] * Differential, auto (08/14/2025 10:43 AM TANK TRUCK MECHANIC) Neutrophil abs 4.19 1.50 - 6.50 K/cumm Comment:Testing performed by : [address] [address] Imm gran abs 0.03 0.00 - 0.10 K/cumm ELIZABETH Comment:Testing performed by : [address] [address] Lymphocyte abs 2.22 0.80 - 3.30 K/cumm ELIZABETH Comment:Testing performed by : [address] [address] Monocyte abs 0.63 0.20 - 0.80 K/cumm ELIZABETH Comment:Testing performed by : [address] [address] Eosinophil abs 0.17 0.00 - 0.50 K/cumm ELIZABETH Comment:Testing performed by : [address] [address] Basophil abs 0.03 0.00 - 0.10 K/cumm ELIZABETH Comment:Testing performed by : [address] [address] Neutrophil pct 57.7 % ELIZABETH Comment: Interpretive Data Percent cell count reference ranges are not reported, since discordance with absolute values may lead to misinterpretation of CBC data. Current Interpretive Data was last revised on 2018. Testing performed by: [address] [address] Imm gran pct 0.4 % [facility] Comment: Interpretive Data Percent cell count reference ranges are not reported, since discordance with absolute values may lead to misinterpretation of CBC data. Current Interpretive Data was last revised on 2018. Testing performed by: [address] [address] Lymphocyte pct 30.5 % [facility] Comment: Interpretive Data Percent cell count reference ranges are not reported, since discordance with absolute values may lead to misinterpretation of CBC data. Current Interpretive Data was last revised on 2018. Testing performed by: [address] [address] Monocyte pct 8.7 % [facility] Comment: Interpretive Data Percent cell count reference ranges are not reported, since discordance with absolute values may lead to misinterpretation of CBC data. Current Interpretive Data was last revised on 2018. Testing performed by: [address] [address] Eosinophil pct 2.3 % [facility] Comment: Interpretive Data Percent cell count reference ranges are not reported, since discordance with absolute values may lead to misinterpretation of CBC data. Current Interpretive Data was last revised on 2018. Testing performed by: [address] [address] Basophil pct 0.4 % [facility] Comment: Interpretive Data Percent cell count reference ranges are not reported, since discordance with absolute values may lead to misinterpretation of CBC data. Current Interpretive Data was last revised on 2018. Testing performed by: [address] [address] Blood 08/14/2025 10:4 3 AM TANK TRUCK MECHANIC 08/14/2025 10:46 AM TANK TRUCK MECHANIC Angela Hall ASSISTANT HEALTH EDUCATOR LAB BLOOD ORDERABLES Final Re sult [facility]IZABETH [address] [facility] Department [place] [address] * CBC with auto differential (08/14/2025 10:43 AM TANK TRUCK MECHANIC) WBC 7.27 3.80 - 9.90 K/cumm Comment:Testing performed by : [address] [address] Hgb 13.9 13.0 - 17.5 g/dL ELIZABETH Comment:Testing performed by : [address] [address] Hct 40.2 38.9 - 50.3 % ELIZABETH Comment:Testing performed by : [address] [address] Plt 235 150 - 400 K/cumm ELIZABETH Comment:Testing performed by : [address] [address] MPV 10.0 9.1 - 12.3 fL ELIZABETH Comment:Testing performed by : [address] [address] RBC 4.77 4.30 - 5.80 M/cumm ELIZABETH Comment:Testing performed by : [address] [address] MCV 84.3 81.3 - 96.4 fL ELIZABETH Comment:Testing performed by : [address] [address] MCH 29.1 27.1 - 33.3 pg ELIZABETH Comment:Testing performed by : [address] [address] MCHC 34.6 32.3 - 35.7 g/dL ELIZABETH Comment:Testing performed by : [address], [address] RDW CV 13.1 11.1 - 14.9 % ELIZABETH Comment:Testing performed by : [address], [address] RDW SD 40.1 35.7 - 48.1 fL ELIZABETH Comment:Testing performed by : [address] [address] NRBC abs 0.00 0.00 - 0.01 K/cumm ELIZABETH Comment:Testing performed by : [address] [address] ANC Prelim 4.19 1.50 - 6.50 K/cumm ELIZABETH Comment: Interpretive Data The rapid ANC is a preliminary automated count and may vary from the final ANC (Neut Abs) reported in the WBC differential that follows. Current interpretive data was last revised 2024. Testing performed by: [address] [address] Blood 08/14/2025 10:4 3 AM TANK TRUCK MECHANIC 08/14/2025 10:46 AM TANK TRUCK MECHANIC Angela Hall ASSISTANT HEALTH EDUCATOR LAB BLOOD ORDERABLES Final Re sult Performing Organization Address [facility] Co de Phone Number [address] [place] [address] * Lactate dehydrogenase (LD) (08/14/2025 10:43 AM TANK TRUCK MECHANIC) Lactate dehydrogenase (LDH) 141 100 - 250 Units/L Comment:Testing performed by : [address] [address] Blood 08/14/2025 10:4 3 AM TANK TRUCK MECHANIC 08/14/2025 10:46 AM TANK TRUCK MECHANIC Angela Hall ASSISTANT HEALTH EDUCATOR LAB BLOOD ORDERABLES Final Re sult Performing Organization Address [facility] Co de Phone Number [address] [address] * Comprehensive metabolic panel (08/14/2025 10:43 AM TANK TRUCK MECHANIC) Sodium 139 135 - 145 mmol/L Comment:Testing performed by : [address] [address] Potassium, pl 4.3 3.3 - 4.9 mmol/L ELIZABETH Comment:Testing performed by : [address] [address] Chloride 102 97 - 110 mmol/L ELIZABETH Comment:Testing performed by : [address] [address] CO2 25 22 - 32 mmol/L ELIZBAETH Comment:Testing performed by : [address], [place]., [address] Anion gap 12 2 - 15 mmol/L ELIZABETH Comment:Testing performed by : [address], [place]., [address] BUN 12 6 - 25 mg/dL ELIZABETH Comment:Testing performed by : [address], [place]., [address] Creatinine 0.80 0.80 - 1.30 mg/dL ELIZABETH Comment:Testing performed by : [address], [place]., [address] Glucose 95 70 - 199 mg/dL ELIZABETH Comment: Interpretive Data Fasting glucose >/= 126 mg/dl is diagnostic for diabetes. Fasting is defined as no caloric intake for at least 8 hours. Fasting glucose between 100 mg/dl to 125 mg/dl is diagnostic of prediabetes. In a patient with classic symptoms of hyperglycemia or hyperglycemic crisis, a random glucose >/= 200 mg/dl is diagnostic for diabetes. In the absence of unequivocal hyperglycemia, results should be confirmed by repeat testing. The classification and Diagnosis of Diabetes Diabetes Care 2021; 46: S19-S40. Current interpretive data was last revised 2022. Testing performed by: [address] [address] Calcium 9.1 8.5 - 10.3 mg/dL ELIZABETH Comment:Testing performed by : [address] [address] Bilirubin, total 0.3 0.1 - 1.2 mg/dL ELIZABETH Comment:Testing performed by : [address] [address] Protein, pl 6.7 6.5 - 8.5 g/dL ELIZABETH Comment:Testing performed by : [address] [address] Albumin 4.3 3.5 - 5.0 g/dL ELIZABETH Comment:Testing performed by : [address] [address] Alk phos 85 40 - 130 Units/L ELIZABETH Comment:Testing performed by : [address] [address] ALT 15 7 - 55 Units/L ELIZABETH Comment:Testing performed by : [address] [address] AST 14 10 - 50 Units/L ELIZABETH Comment:Testing performed by : [address], [address] Blood 08/14/2025 10:4 3 AM TANK TRUCK MECHANIC 08/14/2025 10:46 AM TANK TRUCK MECHANIC us Angela Hall ASSISTANT HEALTH EDUCATOR LAB BLOOD ORDERABLES Final Re sult Performing Organization Address City/[facility]/ZIP Co de Phone Number ELIZABETH [address] [facility] Department [place] [address] * RAD ONC ARIA COURSE SUMMARY (08/08/2025 9:11 AM TANK TRUCK MECHANIC) Course Name C1_L_Pelvis _2024 ARIA Course Plan Date 08/01/2025 3:41 PM ARIA Elapsed Days 1 ARIA Treatment Start Date 08/06/2025 ARIA Treatment Site [id number]_400 ARIA Dose Given To Date (cGy) 400 ARIA Session Dosage Given (cGy) 0 ARIA Plan ID PELVIS ARIA Fractions Treated 2 ARIA Prescribed Dose Per Fraction (cGy) 200 ARIA Prescribed Total Dose (cGy) 400 ARIA 08/08/2025 9:11 AM TANK TRUCK MECHANIC us Not In File Miscellaneous RADIATION ONCOLOGY ORD ERABLES Final Result ARIA * RAD ONC ARIA SESSION SUMMARY (08/07/2025 3:55 PM TANK TRUCK MECHANIC) Course Name C1_L_Pelvis _2024 ARIA Course Plan Date 08/01/2025 3:41 PM ARIA Elapsed Days 1 ARIA Treatment Start Date 08/06/2025 ARIA Treatment Site [id number]_400 ARIA Dose Given To Date (cGy) 400 ARIA Session Dosage Given (cGy) 200 ARIA Plan ID PELVIS ARIA Fractions Treated 2 ARIA Prescribed Dose Per Fraction (cGy) 200 ARIA Prescribed Total Dose (cGy) 400 ARIA 08/07/2025 3:55 PM TANK TRUCK MECHANIC us Not In File Miscellaneous RADIATION ONCOLOGY ORD ERABLES Final Result ARIBetty * RAD ONC ARIA SESSION SUMMARY (08/06/2025 7:45 AM TANK TRUCK MECHANIC) Course Name C1_L_Pelvis _2024 ARIA Course Plan Date 08/01/2025 3:41 PM ARIA Elapsed Days 0 ARIA Treatment Start Date 08/06/2025 ARIA Treatment Site [id number] ARIA Dose Given To Date (cGy) 200 ARIA Session Dosage Given (cGy) 200 ARIA Plan ID PELVIS ARIA Fractions Treated 1 ARIA Prescribed Dose Per Fraction (cGy) 200 ARIA Prescribed Total Dose (cGy) 400 ARIA 08/06/2025 7:45 AM TANK TRUCK MECHANIC us Not In File Miscellaneous RADIATION ONCOLOGY ORD ERABLES Final Result ARIA * eGFR (07/17/2025 10:05 AM CDT) eGFR 90 >=60 mL/min/1. 73 m2 Comment: Interpretive Data Reference Interval Normal >/= 90 mL/min/1.73m2 Mildly decreased* 60 - 89 mL/min/1.73m2 Mildly to moderately decreased 45 - 59 mL/min/1.73m2 Moderately to severely decreased 30 - 44 mL/min/1.73m2 Severely decreased 15 - 29 mL/min/1.73m2 Kidney Failure < 15 mL/min/1.73m2 *Relative to young adult level Estimated glomerular filtration rate is determined by the 2020 CKD-EPI equation recommended by the National Kidney Foundation (A Unifying Approach to GFR Estimation: Recommendations of the NKF-ASK Task Force on Reassessing the Inclusion of Race in Diagnosing Kidney Disease, JASN 2020). The CKD-EPI equation should not be used for patients with unstable renal function and has not been validated in children and those over 70. Current interpretive data was last reviewed 2021. Testing performed by: [address] [address] Blood 07/17/2025 10:0 5 AM CDT 07/17/2025 10:08 AM CDT us Morgan Song MD LAB BLOOD ORDERABLES Final R esult [facility]AB[facility] [address] [facility] Department [place] [address] * Differential, auto (07/17/2025 10:05 AM CDT) Neutrophil abs 5.29 1.50 - 6.50 K/cumm Comment:Testing performed by : [address] [address] Imm gran abs 0.04 0.00 - 0.10 K/cumm ELIZABETH Comment:Testing performed by : [address] [address] Lymphocyte abs 3.06 0.80 - 3.30 K/cumm ELIZABETH Comment:Testing performed by : [address] [address] Monocyte abs 0.68 0.20 - 0.80 K/cumm ELIZABETH Comment:Testing performed by : [address] [address] Eosinophil abs 0.21 0.00 - 0.50 K/cumm ELIZABETH Comment:Testing performed by : [address] [address] Basophil abs 0.06 0.00 - 0.10 K/cumm ELIZABETH Comment:Testing performed by : [address] [address] Neutrophil pct 56.7 % [facility] Comment: Interpretive Data Percent cell count reference ranges are not reported, since discordance with absolute values may lead to misinterpretation of CBC data. Current Interpretive Data was last revised on 2018. Testing performed by: [address] [address] Imm gran pct 0.4 % [facility] Comment: Interpretive Data Percent cell count reference ranges are not reported, since discordance with absolute values may lead to misinterpretation of CBC data. Current Interpretive Data was last revised on 2018. Testing performed by: [address] [address] Lymphocyte pct 32.8 % [facility] Comment: Interpretive Data Percent cell count reference ranges are not reported, since discordance with absolute values may lead to misinterpretation of CBC data. Current Interpretive Data was last revised on 2018. Testing performed by: [address] [address] Monocyte pct 7.3 % [facility] Comment: Interpretive Data Percent cell count reference ranges are not reported, since discordance with absolute values may lead to misinterpretation of CBC data. Current Interpretive Data was last revised on 2018. Testing performed by: [address] [address] Eosinophil pct 2.2 % [facility] Comment: Interpretive Data Percent cell count reference ranges are not reported, since discordance with absolute values may lead to misinterpretation of CBC data. Current Interpretive Data was last revised on 2018. Testing performed by: [address] [address] Basophil pct 0.6 % [facility] Comment: Interpretive Data Percent cell count reference ranges are not reported, since discordance with absolute values may lead to misinterpretation of CBC data. Current Interpretive Data was last revised on 2018. Testing performed by: [address] [address] Blood 07/17/2025 10:0 5 AM CDT 07/17/2025 10:08 AM CDT Morgan Song MD LAB BLOOD ORDERABLES Final R esult [facility] [address] [facility] Department [place] [address] * CBC with auto differential (07/17/2025 10:05 AM CDT) [facility] Signature WBC 9.34 3.80 - 9.90 K/cumm Comment:Testing performed by : [address] [address] Hgb 13.9 13.0 - 17.5 g/dL ELIZABETH Comment:Testing performed by : [address] [address] Hct 40.1 38.9 - 50.3 % EL[facility]ABETH Comment:Testing performed by : [address] [address] Plt 244 150 - 400 K/cumm ELIZABETH Comment:Testing performed by : [address] [address] MPV 9.6 9.1 - 12.3 fL EL[facility]ABETH Comment:Testing performed by : [address] [address] RBC 4.81 4.30 - 5.80 M/cumm ELIZABETH Comment:Testing performed by : [address] [address] MCV 83.4 81.3 - 96.4 fL EL[facility]ABETH Comment:Testing performed by : [address] [address] MCH 28.9 27.1 - 33.3 pg EL[facility]ABETH Comment:Testing performed by : [address] [address] MCHC 34.7 32.3 - 35.7 g/dL EL[facility]ABETH Comment:Testing performed by : [address] [address] RDW CV 13.2 11.1 - 14.9 % EL[facility]ABETH Comment:Testing performed by : [address], [address] RDW SD 40.0 35.7 - 48.1 fL [facility] Comment:Testing performed by : [address] [address] NRBC abs 0.00 0.00 - 0.01 K/cumm ELIZABETH Comment:Testing performed by : [address] [address] ANC Prelim 5.29 1.50 - 6.50 K/cumm EL[facility]ABETH Comment: Interpretive Data The rapid ANC is a preliminary automated count and may vary from the final ANC (Neut Abs) reported in the WBC differential that follows. Current interpretive data was last revised 2024. Testing performed by: [address] [address] Blood 07/17/2025 10:0 5 AM CDT 07/17/2025 10:08 AM CDT us Morgan Song MD LAB BLOOD ORDERABLES Final R esult Performing Organization Address City/[facility] Co de Phone Number [address] [place] [address] * Lactate dehydrogenase (LD) (07/17/2025 10:05 AM CDT) Lactate dehydrogenase (LDH) 141 100 - 250 Units/L Comment:Testing performed by : [address] [address] Blood 07/17/2025 10:0 5 AM CDT 07/17/2025 10:08 AM CDT us Morgan Song MD LAB BLOOD ORDERABLES Final R esult Performing Organization Address City/[facility] Co de Phone Number [address] [place] [address] * Comprehensive metabolic panel (07/17/2025 10:05 AM CDT) Sodium 142 135 - 145 mmol/L Comment:Testing performed by : [address] [address] Potassium, pl 3.7 3.3 - 4.9 mmol/L [facility] Comment:Testing performed by : [address] [address] Chloride 105 97 - 110 mmol/L ELIZABETH Comment:Testing performed by : [address], [place]., [address] CO2 23 22 - 32 mmol/L [facility] Comment:Testing performed by : [address] [address] Anion gap 14 2 - 15 mmol/L [facility] Comment:Testing performed by : [address], [place]., [address] BUN 14 6 - 25 mg/dL [facility] Comment:Testing performed by : [address] [address] Creatinine 0.90 0.80 - 1.30 mg/dL [facility] Comment:Testing performed by : [address] [address] Glucose 106 70 - 199 mg/dL [facility] Comment: Interpretive Data Fasting glucose >/= 126 mg/dl is diagnostic for diabetes. Fasting is defined as no caloric intake for at least 8 hours. Fasting glucose between 100 mg/dl to 125 mg/dl is diagnostic of prediabetes. In a patient with classic symptoms of hyperglycemia or hyperglycemic crisis, a random glucose >/= 200 mg/dl is diagnostic for diabetes. In the absence of unequivocal hyperglycemia, results should be confirmed by repeat testing. The classification and Diagnosis of Diabetes Diabetes Care 202; 46: S19-S40. Current interpretive data was last revised 2022. Testing performed by: [address] [address] Calcium 8.9 8.5 - 10.3 mg/dL [facility] Comment:Testing performed by : [address] [address] Bilirubin, total 0.2 0.1 - 1.2 mg/dL [facility] Comment:Testing performed by : [address] [address] Protein, pl 6.8 6.5 - 8.5 g/dL ELIZABETH Comment:Testing performed by : [address] [address] Albumin 4.3 3.5 - 5.0 g/dL EL[facility]ABETH Comment:Testing performed by : [address] [address] Alk phos 87 40 - 130 Units/L EL[facility]ABETH Comment:Testing performed by : [address] [address] ALT 13 7 - 55 Units/L [facility]ABETH Comment:Testing performed by : [address] [address] AST 15 10 - 50 Units/L [facility]ETH Comment:Testing performed by : [address] [address] Blood 07/17/2025 10:0 5 AM CDT 07/17/2025 10:08 AM CDT Morgan Song MD LAB BLOOD ORDERABLES Final R esult EL[facility]AB[facility] [address] [facility] Department [place] [address] * PET/CT FDG Skull to Thigh (07/09/2025 3:29 PM CDT) Anatomical Region Laterality Modality N/A Positron Emissio n Tomography (PET) 07/09/2025 4:21 PM CDT Impressions 07/09/2025 4:47 PM CDT 1. Marked FDG avidity in the left hemisacrum, corresponding to biopsy-proven lymphomatous disease. 5PS = 5 2. Marked diffuse uptake in the cecum, which may reflect enteritis or colitis. Correlation with patient symptoms is recommended. The 5PS score is most useful in lymphoma types which are routinely FDG-avid. Lymphomas can be roughly grouped as follows: * Routinely FDG-avid: Hodgkin lymphoma, diffuse large B-cell lymphomas, follicular lymphoma, mantle cell lymphoma, priyanka peripheral T-cell lymphoma, lymphoblastic lymphoma, and Burkitt lymphoma. * Generally not FDG-avid: Small lymphocytic lymphoma and chronic lymphocytic leukemia * Variably FDG-avid (both varying between patients and between lesions): Marginal-zone lymphomas and some T-cell lymphomas, notably cutaneous T-cell lymphomas Caution should be used when applying the 5PS score in the second and third categories above. Dictated by: Belem Santana M.D. The radiology attending physician has personally reviewed this study, and had reviewed and/or edited this written report and agrees with it. Electronically signed by: Alfredo Alexander MD Narrative 07/09/2025 4:47 PM CDT EXAMINATION: TUMOR FDG-PET/CT IMAGING DATE OF STUDY: 07/09/2025 SCANNER: [employer] (SQ1). This is a high-resolution scanner, which can result in higher SUVs (and even detection of previously unrecognized small lesions) compared to older scanners. RADIOPHARMACEUTICAL: 7.51 mCi F-18 Fluorodeoxyglucose (FDG) i.v. Injection site: Right antecubital HISTORY: 75-year-old with new diagnosis of B-cell lymphoma diagnosed on sacrum biopsy of 06/20/2025. The study is requested for initial staging. Initial treatment strategy. TECHNIQUE: The patient's fasting blood glucose level, measured by glucometer before injection of FDG, was 90 mg/dL. After intravenous administration of FDG, noncontrast CT images were obtained for attenuation correction and for fusion with emission PET images to allow for anatomical localization of PET findings. Emission PET images were then obtained. The study was interpreted on the [email or web address] workstation. The mean liver SUV (reported for corporate quality assurance manager purposes) is 72. The total scanned area was skull vertex to proximal thighs. Images of the body were obtained starting 72 minutes after injection of tracer. All reported SUVs are maximum SUVs, unless otherwise specified. COMPARISON: MR dated 06/05/2025 DESCRIPTORS OF LESION FDG AVIDITY: Minimal: <= blood pool Mild: > blood pool and <= liver Moderate: > liver and <= 2x SUVmax liver Moderate to marked: >2x SUVmax liver and <= 3x SUVmax liver Marked: > 3x SUVmax liver FINDINGS: Markedly hypermetabolic lesion in the left sacral ala without definite CT correlate with SUV of 12.3, with areas of uptake measuring 2.4 x 2.7 cm in greatest transaxial diameter. Uptake abuts the left sacroiliac joint; no definite FDG uptake is seen within the joint space. Marked uptake in the right supraspinatus tendon with SUV of 8.6 is favored to represent inflammatory/enthesopathic changes. Marked uptake in the right hamstrings tendon with SUV of 9.9 is favored inflammatory/enthesopathic in etiology. Marked uptake about the right greater trochanter with SUV of 10.0 (image 282) is favored reactive/inflammatory. Marked circumferential uptake of the anus (image 303) with an SUV of 9.7. Marked FDG uptake in the cecum without clear underlying soft tissue correlate, with SUV of 9.9 (image 252). The most FDG-avid lesion is the left sacral alar lesion, with a maximum SUV of 12.3, and approximate axial dimensions of 2.4 x 2.7 cm. The uptake in this lesion is: markedly greater than liver (i.e., more than 2x MAX liver SUV ; for reference, the liver MAX SUV was measured to be 3.1. (5PS= 5) . Additional CT findings: Coronary artery calcifications and calcifications of the aortic valve. Calcified granuloma. Multilevel degenerative changes of the thoracolumbar spine. Hepatic surface nodularity and widening of the periportal space, which can be seen in the setting of hepatic fibrosis. Atherosclerotic ossifications of the infrarenal abdominal aorta. Procedure Note Alfredo Alexander MD - 07/09/2025 EXAMINATION: TUMOR FDG-PET/CT IMAGING DATE OF STUDY: 07/09/2025 SCANNER: [facility] [employer] (SQ1). This is a high-resolution scanner, which can result in higher SUVs (and even detection of previously unrecognized small lesions) compared to older scanners. RADIOPHARMACEUTICAL: 7.51 mCi F-18 Fluorodeoxyglucose (FDG) i.v. Injection site: Right antecubital HISTORY: 75-year-old with new diagnosis of B-cell lymphoma diagnosed on sacrum biopsy of 06/20/2025. The study is requested for initial staging. Initial treatment strategy. TECHNIQUE: The patient's fasting blood glucose level, measured by glucometer before injection of FDG, was 90 mg/dL. After intravenous administration of FDG, noncontrast CT images were obtained for attenuation correction and for fusion with emission PET images to allow for anatomical localization of PET findings. Emission PET images were then obtained. The study was interpreted on the [email or web address] workstation. The mean liver SUV (reported for corporate quality assurance manager purposes) is 72. The total scanned area was skull vertex to proximal thighs. Images of the body were obtained starting 72 minutes after injection of tracer. All reported SUVs are maximum SUVs, unless otherwise specified. COMPARISON: MR dated 06/05/2025 DESCRIPTORS OF LESION FDG AVIDITY: Minimal: <= blood pool Mild: > blood pool and <= liver Moderate: > liver and <= 2x SUVmax liver Moderate to marked: >2x SUVmax liver and <= 3x SUVmax liver Marked: > 3x SUVmax liver FINDINGS: Markedly hypermetabolic lesion in the left sacral ala without definite CT correlate with SUV of 12.3, with areas of uptake measuring 2.4 x 2.7 cm in greatest transaxial diameter. Uptake abuts the left sacroiliac joint; no definite FDG uptake is seen within the joint space. Marked uptake in the right supraspinatus tendon with SUV of 8.6 is favored to represent inflammatory/enthesopathic changes. Marked uptake in the right hamstrings tendon with SUV of 9.9 is favored inflammatory/enthesopathic in etiology. Marked uptake about the right greater trochanter with SUV of 10.0 (image 282) is favored reactive/inflammatory. Marked circumferential uptake of the anus (image 303) with an SUV of 9.7. Marked FDG uptake in the cecum without clear underlying soft tissue correlate, with SUV of 9.9 (image 252). The most FDG-avid lesion is the left sacral alar lesion, with a maximum SUV of 12.3, and approximate axial dimensions of 2.4 x 2.7 cm. The uptake in this lesion is: markedly greater than liver (i.e., more than 2x MAX liver SUV ; for reference, the liver MAX SUV was measured to be 3.1. (5PS= 5) . Additional CT findings: Coronary artery calcifications and calcifications of the aortic valve. Calcified granuloma. Multilevel degenerative changes of the thoracolumbar spine. Hepatic surface nodularity and widening of the periportal space, which can be seen in the setting of hepatic fibrosis. Atherosclerotic ossifications of the infrarenal abdominal aorta. IMPRESSION: 1. Marked FDG avidity in the left hemisacrum, corresponding to biopsy-proven lymphomatous disease. 5PS = 5 2. Marked diffuse uptake in the cecum, which may reflect enteritis or colitis. Correlation with patient symptoms is recommended. The 5PS score is most useful in lymphoma types which are routinely FDG-avid. Lymphomas can be roughly grouped as follows: * Routinely FDG-avid: Hodgkin lymphoma, diffuse large B-cell lymphomas, follicular lymphoma, mantle cell lymphoma, priyanka peripheral T-cell lymphoma, lymphoblastic lymphoma, and Burkitt lymphoma. * Generally not FDG-avid: Small lymphocytic lymphoma and chronic lymphocytic leukemia * Variably FDG-avid (both varying between patients and between lesions): Marginal-zone lymphomas and some T-cell lymphomas, notably cutaneous T-cell lymphomas Caution should be used when applying the 5PS score in the second and third categories above. Dictated by: Belem Santana M.D. The radiology attending physician has personally reviewed this study, and had reviewed and/or edited this written report and agrees with it. Electronically signed by: Alfredo Alexander MD Morgan Song MD IMG PET PROCEDURES Final Res ult * eGFR (07/03/2025 2:35 PM CDT) eGFR 79 >=60 mL/min/1. 73 m2 Comment: Interpretive Data Reference Interval Normal >/= 90 mL/min/1.73m2 Mildly decreased* 60 - 89 mL/min/1.73m2 Mildly to moderately decreased 45 - 59 mL/min/1.73m2 Moderately to severely decreased 30 - 44 mL/min/1.73m2 Severely decreased 15 - 29 mL/min/1.73m2 Kidney Failure < 15 mL/min/1.73m2 *Relative to young adult level Estimated glomerular filtration rate is determined by the 2020 CKD-EPI equation recommended by the National Kidney Foundation (A Unifying Approach to GFR Estimation: Recommendations of the NKF-ASK Task Force on Reassessing the Inclusion of Race in Diagnosing Kidney Disease, JASN 202). The CKD-EPI equation should not be used for patients with unstable renal function and has not been validated in children and those over 70. Current interpretive data was last reviewed 2021. Testing performed by: [facility], [address] [place] [address]., [address] Blood 07/03/2025 2:35 PM CDT 07/03/2025 2:38 PM CDT us Morgan Song MD LAB BLOOD ORDERABLES Final R esult EL[facility]ABETH [address] [facility] Department [place] [address] * Differential, auto (07/03/2025 2:35 PM CDT) Neutrophil abs 6.23 1.50 - 6.50 K/cumm Comment:Testing performed by : [address] [address] Imm gran abs 0.04 0.00 - 0.10 K/cumm ELIZABETH Comment:Testing performed by : [address] [address] Lymphocyte abs 2.78 0.80 - 3.30 K/cumm ELIZABETH Comment:Testing performed by : [address] [address] Monocyte abs 0.59 0.20 - 0.80 K/cumm ELIZBAETH Comment:Testing performed by : [address] [address] Eosinophil abs 0.20 0.00 - 0.50 K/cumm ELIZABETH Comment:Testing performed by : [address] [address] Basophil abs 0.06 0.00 - 0.10 K/cumm ELIZABETH Comment:Testing performed by : [address] [address] Neutrophil pct 62.9 % ELIZABETH Comment: Interpretive Data Percent cell count reference ranges are not reported, since discordance with absolute values may lead to misinterpretation of CBC data. Current Interpretive Data was last revised on 2018. Testing performed by: [address] [address] Imm gran pct 0.4 % EL[facility]ABETH Comment: Interpretive Data Percent cell count reference ranges are not reported, since discordance with absolute values may lead to misinterpretation of CBC data. Current Interpretive Data was last revised on 2018. Testing performed by: [address] [address] Lymphocyte pct 28.1 % [facility] Comment: Interpretive Data Percent cell count reference ranges are not reported, since discordance with absolute values may lead to misinterpretation of CBC data. Current Interpretive Data was last revised on 2018. Testing performed by: [address] [address] Monocyte pct 6.0 % [facility] Comment: Interpretive Data Percent cell count reference ranges are not reported, since discordance with absolute values may lead to misinterpretation of CBC data. Current Interpretive Data was last revised on 2018. Testing performed by: [address] [address] Eosinophil pct 2.0 % [facility] Comment: Interpretive Data Percent cell count reference ranges are not reported, since discordance with absolute values may lead to misinterpretation of CBC data. Current Interpretive Data was last revised on 2018. Testing performed by: [address] [address] Basophil pct 0.6 % [facility] Comment: Interpretive Data Percent cell count reference ranges are not reported, since discordance with absolute values may lead to misinterpretation of CBC data. Current Interpretive Data was last revised on 2018. Testing performed by: [address] [address] Blood 07/03/2025 2:35 PM CDT 07/03/2025 2:38 PM CDT us Morgan Song MD LAB BLOOD ORDERABLES Final R esult EL[facility]AB[facility] [address] [facility] Department [place] [address] * HIV 1/2 Antibody plus p24 Antigen Blood (07/03/2025 2:35 PM CDT) [facility] HIV 1/2 ab + p24 ag Nonreactive Nonreactive Comment:Nonreactive for HIV- 1 antigen and HIV-1/HIV-2 antibodies. No laboratory evidence of HIV infection. If acute HIV infection is suspected, consider testing for HIV-1 RNA. Current interpretive data was last revised on 22. Blood 07/03/2025 2:35 PM CDT 07/03/2025 6:19 PM CDT us Morgan Song MD LAB MICROBIOLOGY - GENERAL O RDERABLES Final Result [facility] [address] [facility] Department [place] [address] * CBC with auto differential (07/03/2025 2:35 PM CDT) WBC 9.90 3.80 - 9.90 K/cumm Comment:Testing performed by : [address] [address] Hgb 14.9 13.0 - 17.5 g/dL ELIZABETH Comment:Testing performed by : [address] [address] Hct 43.0 38.9 - 50.3 % EL[facility]ABETH Comment:Testing performed by : [address] [address] Plt 258 150 - 400 K/cumm ELIZABETH Comment:Testing performed by : [address] [address] MPV 10.1 9.1 - 12.3 fL ELIZABETH Comment:Testing performed by : [address] [address] RBC 5.17 4.30 - 5.80 M/cumm ELIZABETH Comment:Testing performed by : [address] [address] MCV 83.2 81.3 - 96.4 fL EL[facility]ABETH Comment:Testing performed by : [address] [address] MCH 28.8 27.1 - 33.3 pg ELIZABETH LUZ Comment:Testing performed by : [address] [address] MCHC 34.7 32.3 - 35.7 g/dL ELIZABETH LUZ Comment:Testing performed by : [address] [address] RDW CV 13.1 11.1 - 14.9 % EL[facility]ABETH Comment:Testing performed by : [address] [address] RDW SD 39.9 35.7 - 48.1 fL EL[facility]ABETH Comment:Testing performed by : [address] [address] NRBC abs 0.00 0.00 - 0.01 K/cumm ELIZABETH Comment:Testing performed by : [address] [address] ANC Prelim 6.23 1.50 - 6.50 K/cumm ELIZABETH Comment: Interpretive Data The rapid ANC is a preliminary automated count and may vary from the final ANC (Neut Abs) reported in the WBC differential that follows. Current interpretive data was last revised 2024. Testing performed by: [address] [address] Blood 07/03/2025 2:35 PM CDT 07/03/2025 2:38 PM CDT us Morgan Song MD LAB BLOOD ORDERABLES Final R esult [facility]ABETH [address] [facility] Department of Laboratories [place], [place] [id number] * Hepatitis C antibody Blood (07/03/2025 2:35 PM CDT) Hep C Ab Nonreactive Nonreactive Comment: Antibodies to HCV not detected. Does NOT exclude the possibility of recent exposure to HCV. Current interpretive data was last revised on 22 Interpretive Data Nonreactive: Antibodies to HCV not detected. Does NOT exclude the possibility of recent exposure to HCV. Equivocal: Equivocal for HCV antibodies. Supplemental molecular testing will be automatically performed to determine infection status in accordance with current CDC screening recommendations. Reactive: Positive for HCV antibodies. This may represent current or past HCV infection. Supplemental molecular testing will be automatically performed to determine current infection status in accordance with current CDC screening recommendations. Interpretive data was last revised on 2019. Blood 07/03/2025 2:35 PM CDT 07/03/2025 6:19 PM CDT Morgan Song MD LAB MICROBIOLOGY - GENERAL O RDERABLES Final Result Performing Organization Address [facility] Co de Phone Number [address] [place] [address] * Hepatitis B core antibody, total Blood (07/03/2025 2:35 PM CDT) Hep B core IgG/IgM Nonreactive Nonreactive Comment:Testing performed by : [facility], [address] [place]., [address] Blood 07/03/2025 2:35 PM CDT 07/03/2025 7:25 PM CDT Result [facility] Morgan Song MD LAB MICROBIOLOGY - GENERAL O RDERABLES Final Result Performing Organization Address [facility] de Phone Number [address] [address] * Hepatitis B surface antibody (immune status) Blood (07/03/2025 2:35 PM CDT) HBsAb (immune status) Nonreactive Comment: Interpretive Data Nonreactive: This result is consistent with a lack of immunity to Hepatitis B Virus when used in the setting of routine screening. Equivocal: The immune status of the individual should be further assessed, if appropriate, after consideration of clinical status, risk factors, and additional diagnostic information. Reactive: This result is consistent with immunity to Hepatitis B Virus when used in the setting of routine screening. Current interpretive data was last revised on 19. Blood 07/03/2025 2:35 PM CDT 07/03/2025 6:19 PM CDT Morgan Song MD LAB MICROBIOLOGY - GENERAL O RDERABLES Final Result Performing Organization Address City/[facility] Co de Phone Number ELIZABETH [address] [address] * Uric acid (07/03/2025 2:35 PM CDT) Pathologist [facility] Uric acid 4.8 3.0 - 8.0 mg/dL Comment:Testing performed by : [address] [address] Blood 07/03/2025 2:35 PM CDT 07/03/2025 2:38 PM CDT us Morgan Song MD LAB BLOOD ORDERABLES Final R esult Performing Organization Address [facility] Co de Phone Number CAMMI[address] [address] * Lactate dehydrogenase (LD) (07/03/2025 2:35 PM CDT) [facility] Lactate dehydrogenase (LDH) 140 100 - 250 Units/L Comment:Testing performed by : [address] [address] Blood 07/03/2025 2:35 PM CDT 07/03/2025 2:38 PM CDT us Morgan Song MD LAB BLOOD ORDERABLES Final R esult Performing Organization Address [facility] Co de Phone Number [address] [address] * Comprehensive metabolic panel (07/03/2025 2:35 PM CDT) Pathologist [facility] Sodium 140 135 - 145 mmol/L Comment:Testing performed by : [address] [address] Potassium, pl 4.3 3.3 - 4.9 mmol/L [facility]ETH LUZ Comment:Testing performed by : [address] [address] Chloride 102 97 - 110 mmol/L [facility]ABETH LUZ Comment:Testing performed by : [address] [address] CO2 26 22 - 32 mmol/L [facility] Comment:Testing performed by : [address] [address] Anion gap 12 2 - 15 mmol/L [facility] Comment:Testing performed by : [address] [address] BUN 12 6 - 25 mg/dL [facility] Comment:Testing performed by : [address] [address] Creatinine 1.00 0.80 - 1.30 mg/dL [facility] Comment:Testing performed by : [address] [address] Glucose 87 70 - 199 mg/dL [facility] Comment: Interpretive Data Fasting glucose >/= 126 mg/dl is diagnostic for diabetes. Fasting is defined as no caloric intake for at least 8 hours. Fasting glucose between 100 mg/dl to 125 mg/dl is diagnostic of prediabetes. In a patient with classic symptoms of hyperglycemia or hyperglycemic crisis, a random glucose >/= 200 mg/dl is diagnostic for diabetes. In the absence of unequivocal hyperglycemia, results should be confirmed by repeat testing. The classification and Diagnosis of Diabetes Diabetes Care 202; 46: S19-S40. Current interpretive data was last revised 2022. Testing performed by: [address] [address] Calcium 9.3 8.5 - 10.3 mg/dL [facility] Comment:Testing performed by : [address] [address] Bilirubin, total 0.2 0.1 - 1.2 mg/dL [facility] Comment:Testing performed by : [address] [address] Protein, pl 7.0 6.5 - 8.5 g/dL [facility] Comment:Testing performed by : [address] [address] Albumin 4.5 3.5 - 5.0 g/dL [facility] Comment:Testing performed by : [address] [address] Alk phos 91 40 - 130 Units/L [facility]ABETH Comment:Testing performed by : [address] [address] ALT 12 7 - 55 Units/L [facility]ABETH Comment:Testing performed by : [facility], [address] [place] [address]., [address] AST 13 10 - 50 Units/L ELIZABETH Comment:Testing performed by : [address] [address] Blood 07/03/2025 2:35 PM CDT 07/03/2025 2:38 PM CDT us Morgan Song MD LAB BLOOD ORDERABLES Final R esult [facility]IZABETH [address] [facility] Department [place] [address] * IR Biopsy Deep Bone (06/20/2025 1:55 PM CDT) Anatomical Region Laterality Modality Body N/A Computed Tomogra phy 06/20/2025 2:10 PM CDT Impressions 06/20/2025 2:50 PM CDT Left sacral ala lesion biopsy under CT guidance. The core specimens were sent to surgical pathology. The aspirated fluid was submitted to microbiology. Dictated by: Celio Arreaga MD The radiology attending physician has personally reviewed this study, and had reviewed and/or edited this written report and agrees with it. Electronically signed by: Michael Beltran M.D. Narrative 06/20/2025 2:50 PM CDT EXAMINATION: Left sacral ala biopsy under CT guidance HISTORY: Marrow replacing lesion in the left hemisacrum ATTENDING PRESENCE: Dr. Michael Beltran M.D., the attending radiologist, was present from the beginning to the end of the procedure. Dr. Celio Arreaga (president and chief commercial officer) and Zayda Vasquez PA-C was present and participated in the procedure. SEDATION: Conscious sedation was administered under the attending physician's direction and continuous monitoring by a trained nurse specialist who was independent from those actually performing the procedure. Total monitored sedation time was 34 minutes. During the course of the procedure, the patient received Fentanyl 200 mcg and Versed 2 mg IV. TECHNIQUE: The risks, benefits and alternatives were discussed and informed consent was obtained. Prior to beginning the procedure, [place] Protocol was performed to confirm the patient's identity and the planned procedure. Sterile barriers used during the procedure included cap, mask, hand hygiene, sterile gloves, sterile gown and a sterile drape. Chloraprep was used for cutaneous antisepsis. The patient was placed prone on the procedure table. 8 mL of a 1:1 mixture of 0.25% bupivacaine and 1% lidocaine was injected for subcutaneous and deep anesthesia. An 10-gauge on control was inserted into the biopsy site and appropriate needle positioning confirmed utilizing CT guidance. 2 core specimens of 1-1.5 cm in length was/were obtained. At this point, a 14-gauge by 16 cm Murdock soft tissue biopsy needle was used to obtain 10 fragmented soft tissue core samples. Approximately 5 mL was aspirated. The needle was removed and the skin was cleansed with hydrogen peroxide. Dermabond was placed at the needle entry site. Complication: None ESTIMATED BLOOD LOSS: <30mL CONDITION: Stable condition. DISCHARGED TO: Home FINDINGS: Initial CT with vague sclerosis of the left sacral ala centered between the sacroiliac joint and S1 foramen correlating to the marrow replacing lesion on MR. Post procedure biopsy revealed no immediate complication. Procedure Note Michael Beltran MD - 06/20/2025 EXAMINATION: Left sacral ala biopsy under CT guidance HISTORY: Marrow replacing lesion in the left hemisacrum ATTENDING PRESENCE: Dr. Michael Beltran M.D., the attending radiologist, was present from the beginning to the end of the procedure. Dr. Celio Arreaga (president and chief commercial officer) and Zayda Vasquez PA-C was present and participated in the procedure. SEDATION: Conscious sedation was administered under the attending physician's direction and continuous monitoring by a trained nurse specialist who was independent from those actually performing the procedure. Total monitored sedation time was 34 minutes. During the course of the procedure, the patient received Fentanyl 200 mcg and Versed 2 mg IV. TECHNIQUE: The risks, benefits and alternatives were discussed and informed consent was obtained. Prior to beginning the procedure, [place] Protocol was performed to confirm the patient's identity and the planned procedure. Sterile barriers used during the procedure included cap, mask, hand hygiene, sterile gloves, sterile gown and a sterile drape. Chloraprep was used for cutaneous antisepsis. The patient was placed prone on the procedure table. 8 mL of a 1:1 mixture of 0.25% bupivacaine and 1% lidocaine was injected for subcutaneous and deep anesthesia. An 10-gauge on control was inserted into the biopsy site and appropriate needle positioning confirmed utilizing CT guidance. 2 core specimens of 1-1.5 cm in length was/were obtained. At this point, a 14-gauge by 16 cm Murdock soft tissue biopsy needle was used to obtain 10 fragmented soft tissue core samples. Approximately 5 mL was aspirated. The needle was removed and the skin was cleansed with hydrogen peroxide. Dermabond was placed at the needle entry site. Complication: None ESTIMATED BLOOD LOSS: <30mL CONDITION: Stable condition. DISCHARGED TO: Home FINDINGS: Initial CT with vague sclerosis of the left sacral ala centered between the sacroiliac joint and S1 foramen correlating to the marrow replacing lesion on MR. Post procedure biopsy revealed no immediate complication. IMPRESSION: Left sacral ala lesion biopsy under CT guidance. The core specimens were sent to surgical pathology. The aspirated fluid was submitted to microbiology. Dictated by: Celio Arreaga MD The radiology attending physician has personally reviewed this study, and had reviewed and/or edited this written report and agrees with it. Electronically signed by: Michael Beltran M.D. Desi Valle ASSISTANT HEALTH EDUCATOR IMG IR PROCEDURES Final Resu lt * Mycology (fungal) culture and stain Aspirate Sacral (06/20/2025 1:43 PM CDT) Direct Specimen Exam Stain: No Fungal elements seen. Report Final Report: No growth of fungus [facility] Aspirate (Sacral) 06/20/2025 1:43 PM CDT 06/20/2025 5:57 PM CDT Narrative [facility] - 07/18/2025 7:51 AM CDT left sacral lesion aspirate Testing performed by [facility] ([phone]). Desi Valle NP LAB MICROBIOLOGY - GENERAL O RDERABLES Final Result Performing Organization Address [facility] Co de Phone Number [facility] Department [place] [address] * Aerobic and anaerobic culture and gram stain Aspirate Sacral (06/20/2025 1:43 PM CDT) Direct Specimen Exam Stain: No polymorphonuclear leukocytes seen. No organisms seen. Report Final Report: No growth [facility] Aspirate (Sacral) 06/20/2025 1:43 PM CDT 06/20/2025 5:57 PM CDT Narrative [facility] - 06/23/2025 11:15 AM CDT left sacral lesion aspirate Testing performed by [facility] ([phone]) Specimens submitted from normally sterile body sites will have all bacterial morphotypes identified. Specimens that contain grossly mixed milana and/or are from body sites that are not normally sterile will be examined for Staphylococcus aureus, Pseudomonas aeruginosa, beta-hemolytic strep, vancomycin-resistant Enterococcus, Bacteroides, Parabacteroides, Clostridium perfringens and fungus. If any of these are isolated, the organism will be reported. Current interpretive data was last revised on 2019. Desi Valle NP LAB MICROBIOLOGY - GENERAL O RDERABLES Final Result Performing Organization Address [facility] Co de Phone Number [facility] Department [place] [address] * Surgical pathology (06/20/2025 1:28 PM CDT) Tissue (Bone - Biopsy / Curettings) 06/20/2025 1:28 PM CDT Comment:left sacral lesion b one biopsy Tissue specimen (specimen) (Soft tissue biopsy) 06/20/2025 1:42 PM CDT Comment:left sacral lesion t issue biopsy Narrative PATHOLOGY [facility] - 06/27/2025 12:00 PM CDT EPIC results best viewed via link to PDF [facility], [place] [address] Note to Patients: This report may contain a detailed description of human tissue sent by a health care provider to the laboratory for pathologic evaluation. The content of this report is essential for diagnosis and may provide important critical findings. This information may be unfamiliar to patients to review without a medical professional present. It is advised that the patient review this report in the presence of a health care provider who can answer questions and explain the details. SURGICAL PATHOLOGY REPORT FINAL Patient Name: QUE ROBBINS Gender: M : 1950 (Age: 75) Address: [address] [place] [id number] Hospital #: [id number] Taken:06/20/2025 Received:06/20/2025 Reported: 06/27/2025 Patient Type: [facility] Ancillary Service: Laboratory Location: Physician(s): Keisha Klein, KAROLYN Anderson DO Diagnosis: A. 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 Soft tissue, left sacral lesion, biopsy - B-cell lymphoma of germinal center origin, see comment tiro/06/25/2025 07:51 By this signature, I attest that the above diagnosis is based upon my personal examination of the slides(and/or other material indicated in the diagnosis). 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 However, there is extensive crush artifact limiting the morphologic evaluation, and a large cell lymphoma cannot be ruled out definitively. Sampling of an enlarged lymph node is recommended for definitive diagnosis. Dr. Avelino Murcia has also reviewed mojica parts of the case. Microscopic Description and Comment: Part A consists of hemorrhage and fragments of bone with bone marrow extensively involved by an atypical lymphoid infiltrate. There is extensive crush artifact, but in more well-preserved areas, the atypical lymphoid cells appear small with irregular nuclei, condensed chromatin, inconspicuous nucleoli, and scant cytoplasm, consistent with centrocytes. Occasional larger cells are seen, with fewer than 15 centroblasts per high-power field. Part B consists of hemorrhage and small fragments of tissue with similar-appearing small lymphocytes. Immunohistochemical stains were performed on part A. The atypical lymphoid infiltrate is comprised of numerous B cells which are diffusely positive for CD20, PAX5, and CD19. B cells co-express CD10, BCL6, and BCL2, and are negative for CD5, CD23, Mum1, MYC, cyclin D1, and CD30. CD21 and CD23 stain few residual follicular dendritic cell meshworks. Ki67 shows a proliferation index of approximately 20% in atypical lymphocytes. Background small T cells (CD3+ CD5+) are present. CD15 stains granulocytes in areas of uninvolved bone marrow. Araseli Matias D.O. History: The patient is a 75-year-old man presenting with disorder of bone, abnormal findings on diagnostic imaging of other parts of musculoskeletal system. Operative procedure: Left sacral lesion bone and tissue biopsies. Specimen(s) Received: A: Left sacral lesion bone biopsy B: Left sacral lesion tissue biopsy Gross Description: Received in two formalin jars labeled with the patient's identifiers. A. Labeled left sacral lesion bone biopsy and consists of two perez-red core(s) of bone (with attached hemorrhagic material measuring 0.9-1.0 cm in length by 0.2 cm in diameter). Labeled A1 with EDTA decalcification. Jar 0. B. Labeled left sacral lesion tissue biopsy and consists of thirteen red hemorrhagic core(s) of soft tissue measuring 0.3 to 1.3 cm in length x 0.1 cm in diameter. Labeled B1 to B2. Jar 0. elsw/06/20/2025 16:09 Gross Pathologist: Breana Quesada MD By this signature, I attest that the above diagnosis is based upon my personal examination of the slides(and/or other material). Addenda/Procedures The performance characteristics of some immunohistochemical stains, fluorescence in-situ hybridization tests and immunophenotyping by flow cytometry cited in this report (if any) were determined by the Surgical Pathology and Flow Cytometry Departments at [facility] as part of an ongoing environmental quality analyst program and in compliance with federally mandated regulations drawn from the Clinical Laboratory Improvement Act of 1988 (CLIA '88). Some of these tests rely on the use of analyte specific reagents and are subject to specific labeling requirements by the US Food and Drug Administration. Such diagnostic tests may only be performed in a facility that is certified by the Department of Health and Human Services as a high complexity laboratory under CLIA '88. The FDA has determined that such clearance or approval is not necessary. This test is used for clinical purposes. It should not be regarded as investigational or for research. Nevertheless, federal rules concerning the medical use of analyte specific reagents require that the following disclaimer be attached to the report: This test was developed and its performance characteristics determined by the Surgical Pathology and Flow Cytometry Departments of [facility]. It has not been cleared or approved by the U. S. Food and Drug Administration. IMAGES AND SCANNED DOCUMENTS, IF INCLUDED, ONLY VIEWABLE IN PDF VERSION OF REPORT us Desi Valle NP LAB PATHOLOGY ORDERABLES [facility] al Result PATHOLOGY [facility] 3rd Floor [place], [place] [phone] * MRI Lumbar Spine W WO Contrast (06/05/2025 3:56 PM CDT) Anatomical Region Laterality Modality Spine N/A Magnetic Resonan ce 06/05/2025 8:59 PM CDT Narrative 06/05/2025 9:21 PM CDT EXAM DESCRIPTION: MRI LUMBAR SPINE W WO CONTRAST REASON FOR STUDY: localized swelling, mass and lump, trunk TECHNIQUE: Sagittal and Axial imaging includes T1, T1 post gadolinium, T2, and STIR sequences. CONTRAST TYPE/DOSE: 18mL of GADOTERATE MEGLUMINE 0.5 MMOL/ML INTRAVENOUS SOLUTION (SO) injected via intravenous COMPARISON: Comparison 05/15/2025. FINDINGS: SEGMENTATION: No transitional anatomy. The lowest well-developed disc space is labeled L5-S1. ALIGNMENT: Normal. VERTEBRAE: Vertebral body height is maintained. Fatty reactive marrow changes within the endplates at L2-3 in keeping with disc degeneration. The tiny focal hypointense area within the superior L1 vertebra does show enhancement and therefore is indeterminate. Prominent T1 hypointense focus within the left sacrum adjacent to sacroiliac joint shows avid enhancement. This lesion is concerning for a metastatic focus. No other enhancing marrow lesion is seen. DISC HEIGHT: Disc space narrowing at L2-3 with rounded T1 hypointense area in the superior L3 vertebral endplate abutting the disc space demonstrating peripheral enhancement has an appearance suggestive of probably an acute Schmorl's node. The presence of fatty reactive changes in endplates at this level also suggests Schmorl's node changes. There is a enhancing Schmorl's node along the inferior T11 endplate as seen on series 16, image 8. Additional tiny endplate Schmorl's nodes are also evident at other levels. Continued attention on follow-up. HARDWARE: None in the spine. CORD/CAUDA: Normal in size and signal intensity. Conus at the appropriate level. LOWER THORACIC: Incompletely imaged. No stenosis seen. INDIVIDUAL DISC LEVELS: L1-2: Diffuse bulge with left foraminal disc protrusion. There is no significant central canal stenosis or neural foraminal stenosis. L2-3: Severe disc space narrowing with facet arthritis and thickening of posterior ligaments. There is moderate to severe spinal stenosis. Changes are stable from prior. L3-4: Mild diffuse annular bulge. Bilateral facet arthritis. There is a left foraminal disc protrusion. Xcao-oa-tsitnmjj spinal stenosis. Mild foraminal narrowing. L4-5: Diffuse annular bulge with thickening of posterior ligaments. Broad-based central disc protrusion. Severe spinal stenosis. Rqut-gp-hsycvpmc bilateral foraminal narrowing. L5-S1: Diffuse annular bulge with bilateral facet arthritis. No significant central canal stenosis or neural foraminal stenosis. SACRUM: Hypointense lesion within the left sacrum measuring roughly 2.4 cm shows enhancement. This lesion is concerning for a possible metastatic lesion. VISUALIZED UPPER ABDOMEN: No significant abnormality. OTHER: No other significant findings. IMPRESSION: 1. Enhancing lesion within the left sacrum adjacent to the sacroiliac joint concerning for metastatic disease. 2. Tiny enhancing lesion within the superior L1 vertebral endplate which is indeterminate. Given the presence of the left sacral lesion, metastatic deposit is not excluded. 3. Multilevel disc degeneration and facet arthritis with severe spinal stenosis at L4-5 and moderate to severe spinal stenosis at L2-3. 4. Focal peripherally enhancing endplate lesions in keeping with likely acute Schmorl's nodes most evident along the superior L3, inferior L2 and inferior T11 endplate. Continued attention on follow-up. THIS IS AN ELECTRONICALLY VERIFIED FINAL REPORT 06/05/2025 9:21 PM - Electronically signed by Donya Coker M.D. LC: YANA Report ID: [id number] Reading Location: [id number] Procedure Note Jayshree Coker MD - 06/05/2025 EXAM DESCRIPTION: MRI LUMBAR SPINE W WO CONTRAST REASON FOR STUDY: localized swelling, mass and lump, trunk TECHNIQUE: Sagittal and Axial imaging includes T1, T1 post gadolinium, T2,and STIR sequences. CONTRAST TYPE/DOSE: 18mL of GADOTERATE MEGLUMINE 0.5 MMOL/ML INTRAVENOUS SOLUTION (SO) injected via intravenous COMPARISON: Comparison 05/15/2025. FINDINGS: SEGMENTATION: No transitional anatomy. The lowest well-developed discspace is labeled L5-S1. ALIGNMENT: Normal. VERTEBRAE: Vertebral body height is maintained. Fatty reactive marrow changes within the endplates at L2-3 in keeping with disc degeneration.The tiny focal hypointense area within the superior L1 vertebra does show enhancement and therefore is indeterminate. Prominent T1 hypointensefocus within the left sacrum adjacent to sacroiliac joint shows avidenhancement. This lesion is concerning for a metastatic focus. No other enhancingmarrow lesion is seen. DISC HEIGHT: Disc space narrowing at L2-3 with rounded T1 hypointensearea in the superior L3 vertebral endplate abutting the disc spacedemonstrating peripheral enhancement has an appearance suggestive of probably an acute Schmorl's node. The presence of fatty reactive changes in endplates atthis level also suggests Schmorl's node changes. There is a enhancingSchmorl's node along the inferior T11 endplate as seen on series 16, image 8. Additional tiny endplate Schmorl's nodes are also evident at other levels. Continued attention on follow-up. HARDWARE: None in the spine. CORD/CAUDA: Normal in size and signal intensity. Conus at theappropriate level. LOWER THORACIC: Incompletely imaged. No stenosis seen. INDIVIDUAL DISC LEVELS: L1-2: Diffuse bulge with left foraminal disc protrusion. There is no significant central canal stenosis or neural foraminal stenosis. L2-3: Severe disc space narrowing with facet arthritis and thickening of posterior ligaments. There is moderate to severe spinal stenosis.Changes are stable from prior. L3-4: Mild diffuse annular bulge. Bilateral facet arthritis. There kika left foraminal disc protrusion. Tjsx-ur-ujmwhqok spinal stenosis. Mild foraminal narrowing. L4-5: Diffuse annular bulge with thickening of posterior ligaments. Broad-based central disc protrusion. Severe spinal stenosis. Ngkx-xr-glkvhaln bilateral foraminal narrowing. L5-S1: Diffuse annular bulge with bilateral facet arthritis. Nosignificant central canal stenosis or neural foraminal stenosis. SACRUM: Hypointense lesion within the left sacrum measuring roughly 2.4cm shows enhancement. This lesion is concerning for a possible metastatic lesion. VISUALIZED UPPER ABDOMEN: No significant abnormality. OTHER: No other significant findings. IMPRESSION: 1. Enhancing lesion within the left sacrum adjacent to the sacroiliacjoint concerning for metastatic disease. 2. Tiny enhancing lesion within the superior L1 vertebral endplate whichis indeterminate. Given the presence of the left sacral lesion, metastatic deposit is not excluded. 3. Multilevel disc degeneration and facet arthritis with severe spinal stenosis at L4-5 and moderate to severe spinal stenosis at L2-3. 4. Focal peripherally enhancing endplate lesions in keeping with likely acute Schmorl's nodes most evident along the superior L3, inferior L2 and inferior T11 endplate. Continued attention on follow-up. THIS IS AN ELECTRONICALLY VERIFIED FINAL REPORT 06/05/2025 9:21 PM - Electronically signed by Donya Coker M.D. LC: YANA Report ID: [id number] Reading Location: [id number] us Desi Valle ASSISTANT HEALTH EDUCATOR IMG MRI PROCEDURES Final Res ult * MRI Sacrum Coccyx W WO Contrast (06/05/2025 3:54 PM CDT) Anatomical Region Laterality Modality Pelvis N/A Magnetic Resonan ce 06/06/2025 7:47 AM CDT Narrative 06/06/2025 7:57 AM CDT EXAM DESCRIPTION: MRI SACRUM COCCYX W WO CONTRAST REASON FOR STUDY: localized swelling, mass and lump. Sacral marrow replacing lesion. TECHNIQUE: Multiplanar, multisequence MRI of the sacrum was performed before and after intravenous contrast. CONTRAST TYPE/DOSE: 18mL of GADOTERATE MEGLUMINE 0.5 MMOL/ML INTRAVENOUS SOLUTION (SO) injected via intravenous COMPARISON: MRI 05/15/2025 FINDINGS: Within the left sacral ala, there is a 2.5 x 2.1 cm marrow replacing lesion. The lesion abuts the left sacroiliac joint with area of extraosseous enhancement. No other suspicious marrow replacing lesion identified. Small left sacroiliac erosion is present. Mild oopag-kbnxtum-jlyu-left sacroiliac joint chondrosis. Inferior lumbar degenerative disc disease with facet osteoarthritis and central canal stenosis at L4-L5 noted. The piriformis muscles are symmetric. Limited evaluation of the proximal sacroiliac joints appear within normal limits. Mild left hamstring origin tendinosis with partial-thickness insertional tearing and mild ischial bursitis. Moderate right hamstring origin tendinosis with partial thickness insertional tear of the semimembranosus attachment. High-grade tear of the conjoined tendon attachment, which is retracted approximately 4 cm. Moderate right ischial bursitis. IMPRESSION: 1. Indeterminate 2.5 x 2.1 cm marrow replacing lesion within the left sacral ala with extraosseous enhancement, which may represent extraosseous extension. Metastatic disease is atop the differential, and recommend correlation with patient history. Tissue sampling is required for definitive diagnosis. 2. Moderate right hamstring origin tendinosis with high-grade tear of the conjoined tendon attachment, retracted approximately 4 cm. Moderate right ischial bursitis. 3. Mild left hamstring origin tendinosis with partial-thickness insertional tearing and mild ischial bursitis. 4. Inferior lumbar degenerative disc disease with facet osteoarthritis and central canal stenosis at L4-L5. THIS IS AN ELECTRONICALLY VERIFIED FINAL REPORT 06/06/2025 7:57 AM - Electronically signed by Que Allen M.D. MF: ARTURO Report ID: [id number] Reading Location: [id number] Procedure Note Que lAlen MD - 06/06/2025 EXAM DESCRIPTION: MRI SACRUM COCCYX W WO CONTRAST REASON FOR STUDY: localized swelling, mass and lump. Sacral marrow replacing lesion. TECHNIQUE: Multiplanar, multisequence MRI of the sacrum was performedbefore and after intravenous contrast. CONTRAST TYPE/DOSE: 18mL of GADOTERATE MEGLUMINE 0.5 MMOL/ML INTRAVENOUS SOLUTION (SO) injected via intravenous COMPARISON: MRI 05/15/2025 FINDINGS: Within the left sacral ala, there is a 2.5 x 2.1 cm marrow replacinglesion. The lesion abuts the left sacroiliac joint with area of extraosseous enhancement. No other suspicious marrow replacing lesion identified. Small leftsacroiliac erosion is present. Mild vllii-nokdmxu-pfdq-left sacroiliac jointchondrosis. Inferior lumbar degenerative disc disease with facet osteoarthritis and central canal stenosis at L4-L5 noted. The piriformis muscles are symmetric. Limited evaluation of the proximal sacroiliac joints appear within normal limits. Mild left hamstring origin tendinosis with partial-thickness insertional tearing and mild ischial bursitis. Moderate right hamstring origin tendinosis with partialthickness insertional tear of the semimembranosus attachment. High-grade tear ofthe conjoined tendon attachment, which is retracted approximately 4 cm.Moderate right ischial bursitis. IMPRESSION: 1. Indeterminate 2.5 x 2.1 cm marrow replacing lesion within the leftsacral ala with extraosseous enhancement, which may represent extraosseousextension. Metastatic disease is atop the differential, and recommend correlationwith patient history. Tissue sampling is required for definitive diagnosis. 2. Moderate right hamstring origin tendinosis with high-grade tear ofthe conjoined tendon attachment, retracted approximately 4 cm. Moderate right ischial bursitis. 3. Mild left hamstring origin tendinosis with partial-thicknessinsertional tearing and mild ischial bursitis. 4. Inferior lumbar degenerative disc disease with facet osteoarthritisand central canal stenosis at L4-L5. THIS IS AN ELECTRONICALLY VERIFIED FINAL REPORT 06/06/2025 7:57 AM - Electronically signed by Que Allen M.D. MF: ARTURO Report ID: [id number] Reading Location: [id number] us Desi Valle ASSISTANT HEALTH EDUCATOR IMG MRI PROCEDURES Final Res ult * COLONOSCOPY (04/29/2019 11:40 AM CDT) Anatomical Region Laterality Modality Other Narrative Procedure Note Pieter Lin MD - 04/29/2019 11:40 AM CDT ENDOSCOPY LAB Patient Name: Que Robbins Procedure Date: 04/29/2019 11:40 AM Date of : 1950 Admit Type: Outpatient Age: 69 Gender: Male Attending MD: Pieter Lin M.D. Room: [place] [address] Note Status: Finalized Procedure: Colonoscopy Indications: Therapeutic procedure for known colon adenoma Providers: Pieter Lin M.D. Referring MD: Nicholas Benitez M.D., Felipe Anderson DO Medicines: Monitored Anesthesia Care Complications: No immediate complications. Estimated Blood Loss: Estimated blood loss: none. Procedure: Pre-Anesthesia Assessment: - Immediately prior to administration of medications,the patient was re-assessed for adequacy to receivesedatives. The benefits, risks and alternatives of the procedureand sedation were discussed and informed consent wasobtained. All questions were answered. Please refer to the signed informed consent document in the medical record. Thescope was passed under direct vision. The [id number] introduced through the anus and advanced to the cecum, identified by appendiceal orifice and ileocecal valve.The colonoscopy was performed without difficulty. Thepatient tolerated the procedure well. The quality of the bowel preparation was good. The quality of the bowelpreparation was evaluated using the BBPS ([place] Bowel Preparation Scale) with scores of: Right Colon = 3, TransverseColon = 3 and Left Colon = 3 (entire mucosa seen well with no residual staining, small fragments of stool or opaque liquid). The total BBPS score equals 9. Bowel prep was administered using a split dose. Findings: The perianal and digital rectal examinations were normal. Internal hemorrhoids were found during retroflexion. The hemorrhoids were Grade II (internal hemorrhoids that prolapse but reduce spontaneously). Two sessile polyps were found in the cecum. The polyps were 3 to 8 mmin size. These polyps were removed with a cold snare. Resection and retrieval were complete. A 25 mm polyp was found in the mid ascending colon. There was tattoo next to the polyp. The polyp was Angela classification IIb (flat). Preparations were made for mucosal resection. Chromoscopy withmethylene blue was done to alyssa the borders of the lesion. 5 mL of saline with methylene blue was injected with adequate lift of the lesion from the muscularis propria. Piecemeal mucosal resection using a COLD snarewith suction (via the working channel) retrieval was performed. Resectionand retrieval were complete. The exam was otherwise without abnormality on direct and retroflexion views. Impression: - Internal hemorrhoids. - Two 3 to 8 mm polyps in the cecum, removed with acold snare. Resected and retrieved. - One 25 mm polyp in the mid ascending colon, removedwith mucosal resection. Resected and retrieved. - The examination was otherwise normal on direct and retroflexion views. Recommendation: - - Repeat colonoscopy in 6 months for surveillance. - No aspirin, ibuprofen, naproxen, or othernon-steroidal anti-inflammatory drugs for 10 days after polypremoval. - Call my nurses Karla Brower RN in the GI office at [phone] for your final pathology results in 7days. - In the unusual situation that you develop abdominal pain, bleeding or other significant problems in thedays following this procedure please call my office at [phone] ([phone]) to speak to my nurses Karla Brower. After hours and evenings please [phone] and speak to the GI fellow lactation nurse. Please tell themthat Dr. Lin did your procedure and that your were instructed to have the fellow call me or the physician covering for me to discuss the management of your condition. If you have an urgent problem, please go tothe nearest emergency room and have the ER doctor call my office during the day or the GI Fellow after hours and weekends to arrange admission or [facility]. Attending Participation: I personally performed the entire procedure. Electronically signed by Pieter Lin MD Pieter Lin M.D. 04/29/2019 12:12:38 PM Number of Addenda: 0 Note Initiated On: 04/29/2019 11:40 AM Pieter Lin MD ENDOSCOPY PROCEDUR ES Final Result from Last 3 Months or Most Recently Relevant to Health Maintenance Insurance MEDICARE [facility] [place] [address] [facility] Advance Directives For more information, please contact: [phone] * Full Code (Latest Code Status on File) Date Activated Date Inactivated Comments 04/29/2019 11:15 AM 04/29/2019 5:01 PM Care Teams Mixing Technician Relationship Specialty Start Date End Date Desi Valle NP [address] [place] [address] [place] [address] PCP - General Nurse Practitioner 06/30/25 Morgan Song MD [address] [place] [address] Consulting Physician Internal Medicine 07/01/25
[2025-08-18 07:42] VITALS: BP 140/67; PULSE 67; RESP 18; TEMP 36.7; O2SAT 99
[2025-08-18 08:08] VITALS: BP 152/78; PULSE 62; RESP 15; O2SAT 98
[2025-08-18] MEDS: LIDOCAINE 2% PF LOCAL INJ 5 ML VIAL INFILTRATE (08:10)
[2025-08-18] MEDS: dexAMETHasone SOD PHOS INJ 10 MG/ML 1 ML VIAL IM (08:10)
[2025-08-18 08:14] VITALS: BP 150/75; PULSE 59; RESP 11; O2SAT 98
[2025-08-18] MEDS: LIDOCAINE 1% PF INJ 5 ML VIAL INFILTRATE (08:16)
[2025-08-18 08:24] VITALS: BP 130/74; PULSE 60; RESP 20; O2SAT 100
== END 2025-08-18 08:31 | disposition home or self-care (01) ==
LOC: ASC 07:03
PROVIDERS: PCP Internal Medicine; Visit Provider Anesthesiology Pain Medicine
PROC: (CPT 64483; principal; 2025-08-18 08:10)
DX: M48.062 Spinal stenosis, lumbar region with neurogenic claudication (principal); M54.16 Radiculopathy, lumbar region
CPT/HCPCS: 64483; 64484; 99199

== ENCOUNTER 2025-09-03 12:11 | Outpatient (CLI) | payer MEDICARE, OTHER, SELFPAY ==
--- NOTE | ~2025-09-03 | XR_ITS ---
EXAMINATION: XR hip RT 2V w AP pelvis, 09/03/2025 12:32 RULING TECHNICIAN HISTORY: M25.551 - Pain in right hip COMPARISON: No comparisons available. Findings: No acute fracture or malalignment. No significant degenerative changes. Soft tissues unremarkable. Impression: No acute fracture or malalignment. Reviewed, dictated and finalized at location P. NG TECHNICIAN Impression: No acute fracture or malalignment.
== END 2025-09-03 12:12 | disposition home or self-care (01) ==
PROVIDERS: PCP Internal Medicine; Visit Provider Nurse Practitioner Adult Health
DX: M25.551 Pain in right hip (principal)
CPT/HCPCS: 73502

== ENCOUNTER 2025-09-21 07:02 | Outpatient (CLI) | payer MEDICARE, OTHER, SELFPAY ==
--- NOTE | ~2025-09-21 | MR_ITS ---
EXAMINATION: MR hip RT wo con DATE: 09/21/2025 08:10 INDICATION: Right hip pain TECHNIQUE: Magnetic resonance imaging (MRI) of the right hip was performed without intravenous contrast. Sequences included full-field axial PD-weighted FS FSE and T1-weighted FSE, coronal of the pelvis with PD-weighted FS FSE, T2- weighted FSE and T1-weighted FSE, small field of view of the right hip with axial PD-weighted FS FSE, sagittal PD-weighted FS FSE, coronal PD-weighted FS FSE and coronal T2 weighted FSE. Additional radial T1-weighted FGR oriented orthogonal to the acetabular rim were obtained for evaluation of the labrum. COMPARISON: None FINDINGS: Bones/labrum/cartilage: Alignment is normal. There is a 2.5 similar region of decreased T1 and increased T2 signal in the left sacral ala situated between the S1 neural foramen and the sacroiliac joint with subtle increased density in this region on prior CT which raises concern for malignancy/metastatic disease. Likely degenerative mild subarticular cystic change along the posterior iliac side of the left sacroiliac joint. Marrow signal is otherwise normal throughout. No fracture. There is a tear of the anterosuperior to posterior superior right acetabular labrum. There is cystic change along the posterior superior rim of the acetabulum. Mild osteoarthritis at the right hip with mild nonuniform partial-thickness cartilage loss with smooth chondral surface. Similar mild osteoarthritis and likely labral tear suggested but not diagnostically evaluated at the contralateral left hip on the larger [id number] images. Lumbar spondylosis with severe disc height loss with degenerative endplate changes at L2-L3 with mild to moderate spondylosis in the more caudal lumbar spine. Fluid: Symmetric physiologic amount of fluid within both hip joints. Soft tissues: Normal and symmetric muscle bulk and signal in the pelvis and visualized proximal thighs. Mild right gluteus minimus bursitis with mild tendinopathy without discrete tear at the left gluteus minimus tendon. The remaining bilateral gluteal tendons as well as the iliopsoas and proximal hamstring tendons are normal. Mild prostatomegaly. Limited evaluation of visceral organs of the pelvis is otherwise unremarkable. Moderate-sized bilateral fat-containing inguinal hernias. No pathologically enlarged pelvic/inguinal lymphadenopathy. IMPRESSION: 1. 2.5 cm lesion at the left sacral ala suspicious for malignancy/metastatic disease. Consider bone scan for further evaluation and to assess for any additional bone lesions. 2. 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 Similar findings suggested but not diagnostically evaluated the contralateral left hip. 3. Mild tendinopathy without tear at the right gluteus medius minimus tendon with mild associated bursitis. 4. Severe lumbar spondylosis. 5. Moderate-sized bilateral fat-containing inguinal hernias. Reviewed, dictated and finalized at location A. KROOM CLERK IMPRESSION: 1. 2.5 cm lesion at the left sacral ala suspicious for malignancy/metastatic di sease. Consider bone scan for further evaluation and to assess for any addition al bone lesions. 2. 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 Similar findings sugg ested but not diagnostically evaluated the contralateral left hip. 3. Mild tendinopathy without tear at the right gluteus medius minimus tendon wi th mild associated bursitis. 4. Severe lumbar spondylosis. 5. Moderate-sized bilateral fat-containing inguinal hernias.
== END 2025-09-21 07:03 | disposition home or self-care (01) ==
PROVIDERS: PCP Internal Medicine; Visit Provider Anesthesiology Pain Medicine
DX: M16.11 Unilateral primary osteoarthritis, right hip (principal); S73.101A Unspecified sprain of right hip, initial encounter; X58.XXXA Exposure to other specified factors, initial encounter; M76.01 Gluteal tendinitis, right hip; M70.71 Other bursitis of hip, right hip; M47.816 Spondylosis without myelopathy or radiculopathy, lumbar region; K40.90 Unilateral inguinal hernia, without obstruction or gangrene, not specified as recurrent; M25.551 Pain in right hip; G89.29 Other chronic pain; C85.90 Non-Hodgkin lymphoma, unspecified, unspecified site
CPT/HCPCS: 73721